=== PATIENT | male | born 1955 | race Caucasian/White ===

== ENCOUNTER 2018-06-02 19:40 | Inpatient (IN) | payer MEDICAID ==
[2018-06-02] MEDS ORDERED: PROPOFOL/EMULSION 1,000 MG/100 ML BOTTLE IV ONE (19:51)
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
[2018-06-02 20:06] LABS: PLATELET COUNT 221 10^3/uL (150-400)
[2018-06-02 20:16] LABS: INR 1.34 (0.83-1.16); PROTIME(PATIENT) 16.8 SEC (12.0-15.0)
[2018-06-02] MEDS ORDERED: IOPAMIDOL (ISOVUE-300) 100 ML BTL ONE (20:26)
[2018-06-02] MEDS ORDERED: MIDAZOLAM 2 MG/2 ML VIAL IVP ONE ×2 (20:37→21:30)
[2018-06-02] MEDS ORDERED: fentaNYL 100 MCG/2 ML INJ IVP ONE (20:38)
[2018-06-02] MEDS ORDERED: LORazepam 2 MG/ML INJ IVP PRN (20:43)
[2018-06-02] MEDS ORDERED: NALOXONE HCL 0.4 MG/ML INJ IVP PRN (20:43)
[2018-06-02] MEDS ORDERED: TDAP ADULT 0.5 ML INJ (BOOSTRIX) IM ONE ×2 (20:55→20:56)
[2018-06-02] MEDS ORDERED: NS 1,000 ML IV SCH (21:00)
[2018-06-02] MEDS ORDERED: fentaNYL/NACL 100 ML IV SCH (21:00)
[2018-06-02] MEDS ORDERED: PROPOFOL/EMULSION 100 ML IV SCH (21:00)
[2018-06-02] MEDS: FAMOTIDINE 20 MG/NACL 50 ML IV SCH (21:09)
--- NOTE | 2018-06-02 21:14 | CPEKG ---
Test Reason : OPEN Blood Pressure : / mmHG Vent. Rate : 111 BPM Atrial Rate : 109 BPM P-R Int : 059 ms QRS Dur : 097 ms QT Int : 346 ms P-R-T Axes : 000 086 -06 degrees QTc Int : 470 ms Sinus tachycardia Right atrial enlargement Borderline right axis deviation Left ventricular hypertrophy Confirmed by Octavio Velasquez ([id number]) on 06/02/2018 9:13:55 PM Referred By: Confirmed By:Octavio Velasquez
[2018-06-02 21:18] LABS: CREATINE KINASE 495 IU/L (0-224)
[2018-06-02] MEDS ORDERED: fentaNYL 100 MCG/2 ML INJ ONE (23:12)
[2018-06-02] MEDS ORDERED: MIDAZOLAM 2 MG/2 ML VIAL ONE (23:13)
[2018-06-03 00:22] LABS: PLATELET COUNT 274 10^3/uL (150-400)
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
[2018-06-03 00:56] LABS: INR 1.59 (0.83-1.16); PROTIME(PATIENT) 19.1 SEC (12.0-15.0)
[2018-06-03] MEDS ORDERED: fentaNYL 100 MCG/2 ML INJ IVP ONE (01:00)
[2018-06-03] MEDS ORDERED: NS 250 ML IV PRN (01:00)
[2018-06-03] MEDS ORDERED: RN MUST ADD K & MAG PROT TO WORKLIST MISC ONE (01:00)
[2018-06-03] MEDS ORDERED: VECURONIUM BROMIDE 50 MG in D5W 50 ML IV SCH (01:00)
[2018-06-03] MEDS ORDERED: niCARdipine/NACL 200 ML IV PRN (01:00)
[2018-06-03] MEDS ORDERED: MIDAZOLAM HCL 50 MG in D5W 50 ML IV PRN (01:00)
[2018-06-03] MEDS ORDERED: NS 1,000 ML IV ONE (01:00)
[2018-06-03] MEDS ORDERED: MIDAZOLAM 2 MG/2 ML VIAL IVP PRN (01:00)
--- NOTE | 2018-06-03 01:00 | GPN ---
PREOP DIAGNOSIS: Outpatient cardiac arrest and coma. POSTOP DIAGNOSIS: Outpatient cardiac arrest and coma. OPERATION: Placement of Thermogard catheter right groin. INDICATIONS: The patient is comatose after outpatient cardiac arrest with CPR. PROCEDURE: The right groin area was scrubbed with ChloraPrep, draped in the usual sterile fashion. An 18-gauge needle was used to locate the femoral vein on the 1st pass medial to the artery. A guide wire inserted. The tract dilated, and eventually the Thermogard catheter inserted. A film taken aft er insertion shows the tip of the catheter below the diaphragm. Ports were flushed with heparinized saline other than the Thermogard ports, which were left alone. T he catheter had been sewn to the patient with silk sutures. A Tegaderm dressing maintain the securit y of the placement. /[id number]/MODL
[2018-06-03] MEDS ORDERED: MEPERIDINE 25 MG/0.5 ML AMP IVP PRN (01:57)
[2018-06-03] MEDS: PROPOFOL/EMULSION 100 ML IV SCH ×5 (02:27→23:59)
[2018-06-03] MEDS ORDERED: POTASSIUM Cl (KCl) 50 ML IV ONE ×2 (02:27→08:17)
[2018-06-03] MEDS: NS 1,000 ML IV SCH ×3 (02:29→20:05)
[2018-06-03 06:32] LABS: INR 1.8 (0.83-1.16)
[2018-06-03] MEDS: fentaNYL/NACL 100 ML IV SCH ×2 (07:17→17:16)
[2018-06-03] MEDS: FAMOTIDINE 20 MG/NACL 50 ML IV SCH ×2 (08:53→20:03)
--- NOTE | 2018-06-03 09:04 | PDMN ---
Medical Necessity Medical necessity: MCG: GRG resp failure: traumatic asphyxiation with cardiac arrest, pt vented, hypothermia after cardiac arrest protocol- thermogard catheter placed, anticipate > 2 MN ongoing med nec care, further monitoring, eval and tx.
[2018-06-03 10:11] LABS: CREATINE KINASE 14400 IU/L (0-224)
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
[2018-06-03 12:31] LABS: PLATELET COUNT 233 10^3/uL (150-400)
[2018-06-03 12:41] LABS: INR 2.04 (0.83-1.16); PROTIME(PATIENT) 23.1 SEC (12.0-15.0)
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
[2018-06-03] MEDS: SODIUM BICARBONATE 150 MEQ in D5W 1,000 ML IV SCH ×2 (15:33→22:39)
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
[2018-06-03] MEDS: RN MUST REMOVE K+ & MG+ PROTOCOL FRM WORKLIST MISC SCH (22:59)
[2018-06-04] MEDS: RN MUST ADD CA+ & PHOS PROTOCOL TO WORKLIST MISC SCH ×2 (01:04→15:58)
[2018-06-04 01:18] LABS: PLATELET COUNT 171 10^3/uL (150-400)
[2018-06-04 01:27] LABS: INR 2.28 (0.83-1.16); PROTIME(PATIENT) 25.1 SEC (12.0-15.0)
[2018-06-04] MEDS: NOREPINEPHRINE BITARTRATE 4 MG in NS 500 ML IV PRN ×3 (03:46→16:27)
[2018-06-04] MEDS: PROPOFOL/EMULSION 100 ML IV SCH ×3 (05:25→21:37)
[2018-06-04] MEDS: fentaNYL/NACL 100 ML IV SCH (05:25)
[2018-06-04] MEDS: SODIUM BICARBONATE 150 MEQ in D5W 1,000 ML IV SCH ×3 (05:35→19:39)
[2018-06-04 06:43] LABS: PLATELET COUNT 158 10^3/uL (150-400)
[2018-06-04 07:38] LABS: CREATINE KINASE 23240 IU/L (0-224)
[2018-06-04] MEDS: NS W/ 20 KCl/L 1,000 ML IV SCH (08:37)
[2018-06-04] MEDS ORDERED: POTASSIUM Cl (KCl) 50 ML IV ONE (08:45)
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
[2018-06-04] MEDS ORDERED: ALBUMIN 5% 250 ML IV ONE (09:30)
[2018-06-04] MEDS: FAMOTIDINE 20 MG/NACL 50 ML IV SCH ×2 (09:33→20:41)
[2018-06-04 13:13] LABS: PLATELET COUNT 121 10^3/uL (150-400)
[2018-06-04 14:39] LABS: INR 3.52 (0.83-1.16)
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
[2018-06-04] MEDS ORDERED: PROTOCOL CALCIUM 1 DOSE IV PRN (15:57)
[2018-06-04] MEDS ORDERED: PROTOCOL K PHOSPHATE 1 DOSE IV PRN (15:57)
[2018-06-04] MEDS: RN MUST REMOVE K+ & MG+ PROTOCOL FRM WORKLIST MISC SCH (15:58)
[2018-06-04 16:00] LABS: INR 3.33 (0.83-1.16); PROTIME(PATIENT) 33.6 SEC (12.0-15.0)
[2018-06-04 16:46] LABS: PLATELET COUNT 117 10^3/uL (150-400)
[2018-06-04] MEDS: ACETAMINOPHEN 650 MG/20.3 ML UDCUP TUBE PRN (18:17)
[2018-06-04] MEDS ORDERED: CALCIUM GLUCONATE 50 ML IV ONE (18:36)
[2018-06-04] MEDS ORDERED: PROTOCOL MAGNESIUM 1 DOSE IV PRN ×2 (19:05→20:51)
[2018-06-04] MEDS ORDERED: PROTOCOL POTASSIUM 1 DOSE MISC PRN ×2 (19:05→20:51)
[2018-06-04] MEDS: POTASSIUM Cl (KCl) 50 ML IV SCH ×3 (19:43→21:15)
[2018-06-05] MEDS ORDERED: POTASSIUM Cl (KCl) 50 ML IV ONE ×3 (02:26→20:35)
[2018-06-05] MEDS: SODIUM BICARBONATE 150 MEQ in D5W 1,000 ML IV SCH ×3 (02:36→17:40)
[2018-06-05] MEDS: NOREPINEPHRINE BITARTRATE 4 MG in NS 500 ML IV PRN ×2 (02:40→06:05)
[2018-06-05] MEDS: PROPOFOL/EMULSION 100 ML IV SCH ×2 (03:05→13:46)
[2018-06-05] MEDS: ACETAMINOPHEN 650 MG/20.3 ML UDCUP TUBE PRN (05:01)
[2018-06-05 06:21] LABS: PLATELET COUNT 88 10^3/uL (150-400)
[2018-06-05 07:11] LABS: CREATINE KINASE 18708 IU/L (0-224)
[2018-06-05] MEDS ORDERED: NOREPINEPHRINE BITARTRATE 16 MG in NS 250 ML IV SCH (08:00)
[2018-06-05] MEDS: VASOPRESSIN 25 UNIT in NS 250 ML IV SCH ×2 (08:15→20:52)
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
[2018-06-05] MEDS ORDERED: CALCIUM GLUCONATE 50 ML IV ONE (09:49)
[2018-06-05] MEDS ORDERED: MAGNESIUM SULF 1 GM/DEXTROSE 100 ML IV ONE ×2 (09:49→10:38)
[2018-06-05] MEDS: NS W/ 20 KCl/L 1,000 ML IV SCH (09:56)
--- NOTE | 2018-06-05 10:15 | ECHO ---
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 Normal global systolic LV function. The ejection fraction is visually estimated to be 60 %. No regional wall motion abnormality. Normal diastolic LV function. Trivial mitral valve regurgitation. Trivial tricuspid valve regurgitation. Measurements: Chambers Valvular Assessment AV/MV Valvular Assessment TV/PV Normal Normal Normal Name Value Range Name Value Range Name Value Range Ao Krista (2D): 2.9 cm (1.4 cm-2.6 AV Vmax: 1.35 m/s (1 m/s-1.7 PV Vmax: 1.25 m/s (0.6 m/s-0.9 cm) m/s) m/s) IVSd (2D): 1.0 cm (0.6 cm-1.1 AV maxP mmHg ( - ) PV PGmax: 6 mmHg ( - ) cm) AV meanP mmHg ( - ) LVDd (2D): 4.0 cm (4.2 cm-5.9 ANDI (VTI): 2.0 cm ( - ) cm) MV E Vmax: 0.58 m/s ( - ) LVDs (2D): 2.4 cm (2.1 cm-4 MV A Vmax: 0.48 m/s ( - ) cm) MV E/A: 1.21 ( - ) LVPWd (2D): 1.0 cm (0.6 cm-1 cm) MV PHT: 0.082 s ( - ) LVOTd 1.9 cm 1.9 cm mm MVA (PHT): 2.7 s ( - ) Visual EF: 60 % RVDd(2D): 2.3 cm (1.9 cm-3.8 cmmm) Continued Measurements: Chambers Valvular Assessment AV/MV Patient: TORIE YOUNG Study Date: 06/05/2018 Page 1 of 2 07:29 AM Name Value Name Value LADs: 2.7 cm MV DecTime: 271 m/s LADs Lon.8 cm MV E' Septal: 0.11 m/s LA Area: 13.8 cm2 MV E/E' Septal: 5.30 LA Volume: 30 ml MV E/E' Lateral: 4.60 LA Volume Index: 16.6 ml/m2 RA Area: 10.8 cm2 Additional Vessels Name Value Inferior Vena Cava: 1.6 cm Findings: Left Ventricle: Normal size left ventricle. No LV hypertrophy. Normal global systolic LV function. The ejection fraction is visually estimated to be 60 %. No regional wall motion abnormality. Normal diastolic LV function. Right Ventricle: Normal size right ventricle. Normal RV function. Left Atrium: The left atrium is normal in size. Right Atrium: The right atrium is normal in size. Mitral Valve: The mitral valve is normal in appearance and function. Trivial mitral valve regurgitation. No mitral stenosis is present. Aortic Valve: The aortic valve is tri-leaflet. There is no aortic valve regurgitation. No aortic valve stenosis is present. Tricuspid Valve: The tricuspid valve is normal in appearance and function. Trivial tricuspid valve regurgitation. Pulmonic Valve: The pulmonic valve is normal in appearance and function. There is no pulmonic regurgitation seen. Aorta: The aorta is normal. Normal size aortic root measuring 2.9 cm. IVC: The IVC is normal sized. Pericardium: No pericardial effusion. No pleural effusion. Exam Comments: Patient supine, on ventilator, very thin. (No Signature Object) Patient: TORIE YOUNG Study Date: 06/05/2018 Page 2 of 2 07:29 AM [id number]
[2018-06-05] MEDS ORDERED: AMIODARONE HCL 150 MG/100 ML BAG (1.5 MG/ML) IV ONE (11:04)
[2018-06-05] MEDS ORDERED: AMIODARONE HCL 100 ML IV ONE ×2 (11:30→11:34)
[2018-06-05] MEDS ORDERED: AMIODARONE HCL 200 ML IV ONE (11:34)
[2018-06-05] MEDS: FAMOTIDINE 20 MG/NACL 50 ML IV SCH ×2 (12:08→20:50)
--- NOTE | 2018-06-05 14:23 | ASMTCMCOM ---
CM Note CM Note Notes: Spoke with patient's mother and sister to invite them to a "Family Meeting". They were not interested at this time, maybe later in the week. Date Signed: 06/05/2018 11:04 AM Electronically Signed By:Ashley Jaimes LCSW
[2018-06-05] MEDS ORDERED: LIDOCAINE 1% 300 MG/30 ML SDV MISC ONE (15:18)
[2018-06-05] MEDS ORDERED: LIDOCAINE 1% 300 MG/30 ML SDV ONE (15:20)
--- NOTE | 2018-06-05 16:50 | SOAPPROG ---
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
[2018-06-05] MEDS ORDERED: AMIODARONE HCL 540 MG in D5W 300 ML IV ONE (17:45)
[2018-06-05] MEDS ORDERED: FUROSEMIDE 20 MG/2 ML VIAL IVP ONE (20:45)
[2018-06-05] MEDS: ERTAPENEM 1 GM in NS 100 ML IV SCH (20:49)
[2018-06-05] MEDS: ENOXAPARIN 60 MG/0.6 ML SYR SC SCH (20:52)
[2018-06-06] MEDS: SODIUM BICARBONATE 150 MEQ in D5W 1,000 ML IV SCH (01:13)
[2018-06-06] MEDS: POTASSIUM Cl (KCl) 50 ML IV SCH ×5 (01:28→16:35)
--- NOTE | 2018-06-06 03:24 | GPN ---
PROCEDURE: Bronchoscopy. REASON FOR BRONCHOSCOPY: Atelectasis, right middle lobe pneumonia. ANESTHESIA GIVEN: Patient is currently sedated and on mechanical ventilation. He received 1% lidoca ine topically. DESCRIPTION OF PROCEDURE: Procedure was performed in the intensive care unit under continuous pulse ox, EKG and blood pressure monitoring. Please note, the patient is on mechanical ventilation which i s by definition a closed system and posed no risk to airborne pathogens. Bronchoscope was entered through a #7.5 endotracheal tube. Distal trachea and katerin were visualized , showed no endobronchial lesions and normal-appearing mucosa. Bronchoscope inserted in the left jj g. Left upper lobe, lingula and left lower lobe including subsegments were visualized, showed no end obronchial lesions and normal-appearing mucosa. Bronchoscope inserted in the right lung. Right uppe r lobe was visualized, showed no endobronchial lesions, normal-appearing mucosa. Right middle lobe a nd then right lower lobes were visualized, showed no endobronchial lesions, normal-appearing mucosa, but moderate amount of thin bloody secretions that were therapeutically aspirated. Bronchoalveolar l avage was taken from the right middle lobe and right lower lobe. This was sent for culture and sensi tivity. The patient tolerated the procedure well. There were no apparent complications. /[id number]/MODL
[2018-06-06] MEDS: ACETAMINOPHEN 650 MG/20.3 ML UDCUP TUBE PRN (03:54)
[2018-06-06 05:21] LABS: PLATELET COUNT 59 10^3/uL (150-400)
[2018-06-06] MEDS ORDERED: CALCIUM GLUCONATE 50 ML IV ONE (05:32)
[2018-06-06 06:06] LABS: CREATINE KINASE 12034 IU/L (0-224)
--- NOTE | 2018-06-06 06:12 | CPEKG ---
Test Reason : OPEN Blood Pressure : / mmHG Vent. Rate : 151 BPM Atrial Rate : 150 BPM P-R Int : 132 ms QRS Dur : 082 ms QT Int : 280 ms P-R-T Axes : -78 072 258 degrees QTc Int : 444 ms atrial fibrillation with RVR Repolarization abnormality, prob rate related Confirmed by Loki Dozier ([id number]) on 06/06/2018 6:12:35 AM Referred By: Confirmed By:Loki Dozier
[2018-06-06] MEDS ORDERED: MAGNESIUM SULF 1 GM/DEXTROSE 100 ML IV ONE (08:40)
[2018-06-06] MEDS ORDERED: POTASSIUM Cl (KCl) 50 ML IV ONE ×2 (08:42→20:47)
[2018-06-06] MEDS: FAMOTIDINE 20 MG/NACL 50 ML IV SCH (09:03)
[2018-06-06] MEDS: CALCIUM GLUCONATE 50 ML IV ONE ×2 (09:03→09:23)
[2018-06-06] MEDS: ENOXAPARIN 60 MG/0.6 ML SYR SC SCH (09:05)
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
[2018-06-06] MEDS ORDERED: AMIODARONE HCL 150 MG/100 ML BAG (1.5 MG/ML) IV ONE (10:28)
[2018-06-06] MEDS ORDERED: AMIODARONE A.FIB-LOAD DOSE(ORDER 1/3) PREMIX IV ONE (11:00)
[2018-06-06] MEDS: AMIODARONE HCL 200 ML IV SCH ×2 (12:20→22:11)
[2018-06-06] MEDS ORDERED: DILTIAZEM 25 MG/5 ML VIAL IVP ONE (12:30)
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
[2018-06-06] MEDS: NS W/ 20 KCl/L 1,000 ML IV SCH ×2 (13:21→15:35)
--- NOTE | 2018-06-06 15:01 | ASMTCMCOM ---
CM Note CM Note Notes: Patient has had numerous admits to [facility]. He is familiar to [facility]. 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 Besides his disability check-$600, it would be hard for him without those 2 checks. It's too exhausting for him to carry an O2 tank being homeless. Unless placement is found for both patient and the person he cares for, he will continue to come to [facility] as needed. Date Signed: 06/06/2018 03:00 PM Electronically Signed By:Ashley Jaimes LCSW
--- NOTE | 2018-06-06 15:07 | ASMTCMCOM ---
CM Note CM Note Notes: Please disregard the CM Note 06/06/18 15:01. Written on the wrong patient. Date Signed: 06/06/2018 03:06 PM Electronically Signed By:Ashley Jaimes LCSW
[2018-06-06] MEDS: METOPROLOL TARTRATE 5 MG/5 ML INJ IVP SCH ×3 (16:23→22:09)
[2018-06-06] MEDS: PANTOPRAZOLE SODIUM 40 MG VIAL IVP SCH (16:27)
[2018-06-06] MEDS ORDERED: METOPROLOL TARTRATE 5 MG/5 ML INJ IVP SCH (18:00)
[2018-06-06] MEDS: ERTAPENEM 1 GM in NS 100 ML IV SCH (20:44)
[2018-06-06] MEDS: PETROLAT,WHT/MIN OIL/SOD CHL 3.5 GM OPHT.OINT EACHEYE PRN (21:48)
[2018-06-06] MEDS: DILTIAZEM HCL/D5W 125 ML IV SCH (23:02)
[2018-06-07] MEDS: POTASSIUM Cl (KCl) 50 ML IV SCH ×12 (02:33→22:14)
[2018-06-07] MEDS: PETROLAT,WHT/MIN OIL/SOD CHL 3.5 GM OPHT.OINT EACHEYE PRN (03:45)
[2018-06-07] MEDS: METOPROLOL TARTRATE 5 MG/5 ML INJ IVP SCH ×3 (05:45→18:02)
[2018-06-07 06:41] LABS: INR 1.63 (0.83-1.16); PROTIME(PATIENT) 19.5 SEC (12.0-15.0)
[2018-06-07 06:43] LABS: PLATELET COUNT 54 10^3/uL (150-400)
[2018-06-07] MEDS ORDERED: CALCIUM GLUCONATE 50 ML IV ONE (07:35)
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
--- NOTE | 2018-06-07 08:31 | TRAUMAPN ---
Trauma Progress Note - Problem/Surgery Performed (1) Traumatic asphyxiation Assessment/Plan: profound neuro defecit with some reflex function returning/neurology consult this morning with Dr. Lundy Qualifiers: Encounter type: initial encounter Qualified Code(s): T71.9XXA - Asphyxiation due to unspecified cause, initial encounter (4) Diarrhea Assessment/Plan: started several days ago and slowing down some/rectal tube in place Qualifiers: Diarrhea type: unspecified type Qualified Code(s): R19.7 - Diarrhea, unspecified (5) Thrombocytopenia Assessment/Plan: likely due to hypothermia/will hold LMWH and monitor (6) Anemia Assessment/Plan: likely secondary to hypothermia, will monitor and hold LMWH Qualifiers: Bone marrow failure anemia type: pancytopenia, other Assessment/Plan: s/p traumatic asphyxia with persistant, but resolving, severe neurologic defecit s/p HACA protocol anemia/thrombocytopenia ventilatory failure nutritional defecit Plan: Subjective: intubated day #5, sedation off Objective: Vital Signs Temp Pulse Resp BP Pulse Ox 37.2 C 84 18 142/75 H 95 06/07/18 07:00 06/07/18 07:00 06/07/18 07:00 06/07/18 07:00 06/07/18 07:00 Microbiology 06/05/18 Unknown Gram Stain - Final Bronchial Alveolar Lavage - Bilateral Lobes Laboratory Results 06/07/18 06:00 06/07/18 06:00 06/06/18 06/07/18 06/08/18 05:59 05:59 05:59 Intake Total 5740.6 1970 Output Total 3330 2250 Balance 2410.6 -280 PT 19.5 SEC (12.0-15.0) H 06/07/18 06:00 INR 1.63 (0.83-1.16) H 06/07/18 06:00 - C-Spine Clearance Cervical Spine Cleared: No Physical Exam - Physical Exam General Appearance: other (intubated, spontaneous cough, responds to ETT suctioning) EENT: other (P 3RRL) Neck: other (C collar in place) Respiratory: decreased breath sounds, rhonchi Cardiac/Chest: regular rate, rhythm Abdomen: soft, distended, other (Thermaguard catheter right groin) Male Genitalia: other (Liriano cath) Rectal: deferred, other (rectal tube) Skin: warm/dry Neuro/Psych: motor weakness, sensory deficit, cognition abnormalities (GCS 1-2-1 ), other
[2018-06-07] MEDS: AMIODARONE HCL 200 ML IV SCH ×2 (08:48→19:48)
[2018-06-07] MEDS: PANTOPRAZOLE SODIUM 40 MG VIAL IVP SCH (08:55)
[2018-06-07] MEDS: ACETAMINOPHEN 650 MG/20.3 ML UDCUP TUBE PRN ×3 (09:30→19:58)
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
[2018-06-07] MEDS ORDERED: ALTEPLASE 2 MG VIAL IVP PRN (10:51)
--- NOTE | 2018-06-07 11:49 | ASMTCMCOM ---
CM Note CM Note Notes: Met with patient's mother, Cindy and sister, Vandana (Ashley) regarding proxy for the patient. Cindy states she is not strong enough to be the proxy right now and supports Ashley serving in that capacity. Ashley's phone number is [phone]. Ashley lives in [place] and is available 24-7 for any issues that may come up with her brother's care. Ashley was given copies of the proxy appointment and the proxy responsibilities paperwork. Cindy and Ashley talked with Dr. Walker and currently they would like to give the patient until Tuesday morning to see if he improves at all. In rounds today, the nurse stated patient opened his eyes and looked around. Otherwise there has not been any significant neurological change. Reviewed family meetings with family members and they will let us know when they need one. So far, Cindy and Ashley feel the nursing staff is doing an excellent job of keeping them informed. CM will follow. Date Signed: 06/07/2018 11:49 AM Electronically Signed By:Eun Leon LCSW
[2018-06-07] MEDS: DILTIAZEM HCL/D5W 125 ML IV SCH (16:29)
[2018-06-07] MEDS: ERTAPENEM 1 GM in NS 100 ML IV SCH (19:58)
[2018-06-07] MEDS: NS W/ 20 KCl/L 1,000 ML IV SCH (21:20)
[2018-06-08] MEDS: METOPROLOL TARTRATE 5 MG/5 ML INJ IVP SCH ×4 (00:22→17:52)
[2018-06-08] MEDS: POTASSIUM Cl (KCl) 50 ML IV SCH ×6 (01:27→21:18)
[2018-06-08] MEDS: PETROLAT,WHT/MIN OIL/SOD CHL 3.5 GM OPHT.OINT EACHEYE PRN (02:52)
[2018-06-08] MEDS: ACETAMINOPHEN 650 MG/20.3 ML UDCUP TUBE PRN (03:07)
[2018-06-08] MEDS: AMIODARONE HCL 200 ML IV SCH ×2 (05:26→15:59)
[2018-06-08 05:41] LABS: PLATELET COUNT 52 10^3/uL (150-400)
[2018-06-08] MEDS ORDERED: CALCIUM GLUCONATE 50 ML IV ONE (08:21)
--- NOTE | 2018-06-08 08:21 | NEUROPROG ---
Assessment: Total unit time of 25 min. I had a detailed discussion with the patient's sister. His prognosis is currently uncertain but still remains poor given the lack of major improvements since his arrest. However, I am still in favor of watching for the next several days to see if we see any signs of slow improvement that would suggest a good quality of life outcome. His sister has a good perspective and fully understands the challenges we face in trying to predict what will happen in the future but does say the patient would have historically strongly desired autonomy. Subjective: The patient has had no major changes in the last 24 hr since I examined him. I met his sister this morning who will be the decision maker in all likelihood for ongoing care issues. There have been no changes in relative responsiveness. He has not been following commands in any reliable fashion at this point. Objective: Vital Signs Temp Pulse Resp BP Pulse Ox 37.3 C 76 31 H 142/83 H 95 06/08/18 06:00 06/08/18 07:00 06/08/18 07:00 06/08/18 07:00 06/08/18 07:00 Microbiology 06/05/18 Unknown Gram Stain - Final Bronchial Alveolar Lavage - Bilateral Lobes Bronchial Culture - Final Klebsiella Oxytoca/Raoutella Laboratory Results 06/08/18 05:25 06/08/18 05:25 06/07/18 06/08/18 06/09/18 05:59 05:59 05:59 Intake Total 1970 3365 Output Total 2250 1825 Balance -280 1540 PT 19.5 SEC (12.0-15.0) H 06/07/18 06:00 INR 1.63 (0.83-1.16) H 06/07/18 06:00 He is on the ventilator currently and occasionally coughs or has some spontaneous grimacing or furrowing of the brow but not consistently to my direct painful stimuli. There are conjugate, slow roving eye movements without attention. He isn't following commands. He is not withdrawing to pain. Allergies/Adverse Reactions: No Known Allergies Allergy (Unverified 06/02/18 21:00)
[2018-06-08] MEDS: PANTOPRAZOLE SODIUM 40 MG VIAL IVP SCH (08:37)
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
[2018-06-08] MEDS ORDERED: CALCIUM GLUCONATE 1 GM in D5W 50 ML IV ONE (09:00)
--- NOTE | 2018-06-08 09:47 | TRAUMAPN ---
Trauma Progress Note Assessment/Plan: 63 yo s.p crush injury with 1st rib fracture and cardiac arrest s/p HACA Slow return of recovery. Today opened eyes wide open when I palpated his abdomen although did not focus. I agree that it is reasonable to follow for a few more days before making decisions Guarded prognosis Discussed with sister Appreciate Photogrammetry Airplane Pilot Objective: Vital Signs Temp Pulse Resp BP Pulse Ox 37.2 C 67 24 H 140/79 H 96 06/08/18 08:30 06/08/18 09:00 06/08/18 09:00 06/08/18 09:00 06/08/18 09:00 Microbiology 06/05/18 Unknown Gram Stain - Final Bronchial Alveolar Lavage - Bilateral Lobes Bronchial Culture - Final Klebsiella Oxytoca/Raoutella Laboratory Results 06/08/18 05:25 06/08/18 05:25 06/07/18 06/08/18 06/09/18 05:59 05:59 05:59 Intake Total 1970 3365 Output Total 2250 1825 Balance -280 1540 PT 19.5 SEC (12.0-15.0) H 06/07/18 06:00 INR 1.63 (0.83-1.16) H 06/07/18 06:00 - C-Spine Clearance Cervical Spine Cleared: No Physical Exam - Physical Exam General Appearance: WD/WN, no apparent distress, unresponsive EENT: scleral icterus (R), scleral icterus (L) Neck: other (c collar in place) Respiratory: lungs clear, normal breath sounds Cardiac/Chest: regular rate, rhythm Abdomen: soft, other (much softer, some bowel sounds, grimaces with palpation) Neuro/Psych: other (does not follow commands)
[2018-06-08] MEDS ORDERED: POTASSIUM Cl (KCl) 50 ML IV ONE (10:26)
[2018-06-08] MEDS: ERTAPENEM 1 GM in NS 100 ML IV SCH (20:39)
[2018-06-09] MEDS: NS W/ 20 KCl/L 1,000 ML IV SCH (01:11)
[2018-06-09] MEDS: METOPROLOL TARTRATE 5 MG/5 ML INJ IVP SCH ×5 (01:14→23:56)
[2018-06-09] MEDS: POTASSIUM Cl (KCl) 50 ML IV SCH ×7 (01:14→23:56)
[2018-06-09] MEDS: DILTIAZEM HCL/D5W 125 ML IV SCH ×3 (01:15→22:25)
[2018-06-09 06:33] LABS: PLATELET COUNT 50 10^3/uL (150-400)
[2018-06-09] MEDS: PANTOPRAZOLE SODIUM 40 MG VIAL IVP SCH (08:07)
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
--- NOTE | 2018-06-09 08:42 | NEUROPROG ---
Assessment: Total unit time of 25 min. I had a detailed discussion with the patient's sister. His prognosis is currently uncertain but still remains poor given the lack of major improvements since his arrest. However, I am still in favor of watching for the next several days to see if we see any signs of slow improvement that would suggest a good quality of life outcome. His sister has a good perspective and fully understands the challenges we face in trying to predict what will happen in the future but does say the patient would have historically strongly desired autonomy. 06/09/18: There is significant improvement today. Total unit time of 15 min. There may be residual encephalopathy, but these are very good signs so we will watch for ongoing, improvements and see more about neurologic status once he is able to be extubated. Subjective: The patient has started to respond with sustained eye opening and is starting to follow commands over the last 12 hr. Objective: Vital Signs Temp Pulse Resp BP Pulse Ox 37.7 C 70 28 H 142/77 H 94 06/09/18 08:00 06/09/18 08:00 06/09/18 08:00 06/09/18 08:00 06/09/18 08:00 Laboratory Results 06/09/18 06:20 06/09/18 06:20 06/08/18 06/09/18 06/10/18 05:59 05:59 05:59 Intake Total 3365 2523 Output Total 1825 2450 Balance 1540 73 PT 19.5 SEC (12.0-15.0) H 06/07/18 06:00 INR 1.63 (0.83-1.16) H 06/07/18 06:00 Currently he is awake with eyes opened and periodically looks around the room and seems to attend to individuals at various times and is following some simple commands such as moving his feet and closing his eyes. Although I could not get him to move the arms, earlier there was a reaction to manipulation the left axillary region by reaching over the right arm according to the nurse. Allergies/Adverse Reactions: No Known Allergies Allergy (Unverified 06/02/18 21:00)
--- NOTE | 2018-06-09 10:23 | TRAUMAPN ---
Trauma Progress Note Assessment/Plan: 63yo M s/p crush injury c subsequent cardiac arrest, now on HACA, rewarming Neuro: following commands, tracking with eyes. Winces with pain Pulm: weaning on vent, wean to extubate CV: HDS, off pressors, rate controlled on dilt Abdomen: soft, ND. FMS in place, loose stools. Not bloody Renal: page, UOP appropriate Heme: Hb stable, on LMWH, will trend. Had elevated CK from crush injury Id: afebrile Ortho: L hand images today, per my review nothing acute, will check against final read Dispo: significant progress made neurologically today. Wean vent. Trickle feeds , remove FMS. This is great news Subjective: following commands Objective: Vital Signs Temp Pulse Resp BP Pulse Ox 38 C 71 29 H 149/71 H 93 06/09/18 09:00 06/09/18 09:00 06/09/18 09:00 06/09/18 09:00 06/09/18 09:00 Laboratory Results 06/09/18 06:20 06/09/18 06:20 06/08/18 06/09/18 06/10/18 05:59 05:59 05:59 Intake Total 3365 2523 Output Total 1825 2450 Balance 1540 73 PT 19.5 SEC (12.0-15.0) H 06/07/18 06:00 INR 1.63 (0.83-1.16) H 06/07/18 06:00 - C-Spine Clearance Cervical Spine Cleared: No
[2018-06-09] MEDS: D5W 1,000 ML IV SCH ×2 (13:19→23:56)
[2018-06-09] MEDS ORDERED: POTASSIUM Cl (KCl) 50 ML IV SCH (13:45)
[2018-06-09] MEDS ORDERED: POTASSIUM Cl (KCl) 50 ML IV ONE ×2 (14:00)
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
--- NOTE | 2018-06-09 16:04 | ASMTCMCOM ---
CM Note CM Note Notes: Spoke with patient's sister regarding Medicaid application. Caroline has contacted her and she is in the process of seeing if she can obtain any check stubs or financial information from patient's place of work. 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 Ashley is pursuing guardianship for her brother so she can manage his financial affairs until he is able again. Patient's nurse states he is following activity with his eyes and had some response to pain. Patient's neuro status slightly improved. D/C plan remains TBD. Spoke with Eula from inpatient rehab who was inquiring about him. She will continue to track his progress. CM will follow. Date Signed: 06/09/2018 04:03 PM Electronically Signed By:Eun Leon LCSW
[2018-06-09] MEDS: ERTAPENEM 1 GM in NS 100 ML IV SCH (22:25)
[2018-06-10] MEDS: POTASSIUM Cl (KCl) 50 ML IV SCH (00:54)
[2018-06-10] MEDS ORDERED: POTASSIUM Cl (KCl) 50 ML IV ONE ×3 (02:33→21:32)
[2018-06-10] MEDS: METOPROLOL TARTRATE 5 MG/5 ML INJ IVP SCH ×3 (05:21→17:51)
[2018-06-10 05:45] LABS: INR 1.36 (0.83-1.16); PROTIME(PATIENT) 16.9 SEC (12.0-15.0)
[2018-06-10 05:52] LABS: PLATELET COUNT 103 10^3/uL (150-400)
--- NOTE | 2018-06-10 08:13 | NEUROPROG ---
Assessment: Total unit time of 25 min. I had a detailed discussion with the patient's sister. His prognosis is currently uncertain but still remains poor given the lack of major improvements since his arrest. However, I am still in favor of watching for the next several days to see if we see any signs of slow improvement that would suggest a good quality of life outcome. His sister has a good perspective and fully understands the challenges we face in trying to predict what will happen in the future but does say the patient would have historically strongly desired autonomy. 06/09/18: There is significant improvement today. Total unit time of 15 min. There may be residual encephalopathy, but these are very good signs so we will watch for ongoing, improvements and see more about neurologic status once he is able to be extubated. 06/10/18: Total unit time of 15 min. The patient is making a good recovery neurologically with returning cognitive and physical function although everything is still understandably very slow. He will probably start rehab therapies this weekend and move toward more long-term recovery in the next week. Subjective: Patel says that he does not have pain. However, he is slow to respond right now. The nurse says said he has noticed pain in his left shoulder at times. He is extubated now and consistently following commands. Objective: Vital Signs Temp Pulse Resp BP Pulse Ox 36.9 C 72 38 H 153/86 H 94 06/10/18 05:39 06/10/18 07:00 06/10/18 07:00 06/10/18 07:00 06/10/18 07:00 Laboratory Results 06/10/18 04:25 06/10/18 04:25 06/09/18 06/10/18 06/11/18 05:59 05:59 05:59 Intake Total 2523 2287 Output Total 2450 2850 Balance 73 -563 PT 16.9 SEC (12.0-15.0) H 06/10/18 04:25 INR 1.36 (0.83-1.16) H 06/10/18 04:25 His eyes are opening and he is able to attend to his environment and tracked me and move all of his extremities though quite weak in general. Most of the movements are in the 2 or 3/5 range and a little weaker in the left arm perhaps related to some pain. Allergies/Adverse Reactions: No Known Allergies Allergy (Unverified 06/02/18 21:00)
--- NOTE | 2018-06-10 08:52 | TRAUMAPN ---
Trauma Progress Note Assessment/Plan: 63yo M s/p crush injury c subsequent cardiac arrest, prior HACA/rewarming no overnight issues. waking up significantly more than yesterday. AVSS alert, following commands, poor extremity movement - effort appears to be increasing. heart reg lungs clear abd dist, soft ext with diffuse edema rt arm PICC clean Neuro: following commands, tracking with eyes, verbalizing today Pulm: tolerating RA well CV: HDS, off pressors, rate controlled on dilt GI: tolerating TF - no issues Renal: page, UOP appropriate Heme: Hb stable, on LMWH, will trend. Had elevated CK from crush injury - resolved Id: afebrile Dispo: LTAC planning - tx SDU care plan reviewed with ICU MD and sister/son at bedside. Objective: Vital Signs Temp Pulse Resp BP Pulse Ox 36.9 C 72 38 H 153/86 H 94 06/10/18 05:39 06/10/18 07:00 06/10/18 07:00 06/10/18 07:00 06/10/18 07:00 Laboratory Results 06/10/18 04:25 06/10/18 04:25 06/09/18 06/10/18 06/11/18 05:59 05:59 05:59 Intake Total 2523 2287 Output Total 2450 2850 Balance 73 -563 PT 16.9 SEC (12.0-15.0) H 06/10/18 04:25 INR 1.36 (0.83-1.16) H 06/10/18 04:25 - C-Spine Clearance Cervical Spine Cleared: No
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
[2018-06-10] MEDS: PANTOPRAZOLE SODIUM 40 MG VIAL IVP SCH (09:17)
[2018-06-10] MEDS: D5W 1,000 ML IV SCH (15:05)
--- NOTE | 2018-06-10 16:59 | HOSPPROG ---
Hospitalist Progress Note Assessment/Plan: * s/p cardiac arrest due to crush injury -ECHO okay * Metabolic encephalopathy - suspect due to anoxia -s/p HACA -improving daily * Afib -suspect due to stress - now NSR -IV metoprolol while NPO * Acute respiratory failure -s/p extubation * 1st rib fracture -rib fracture protocol * Aspiration PNA -IV invanz * Rhabdo due to crush injury -CPK improving * Increased LFT -likely due to shock * Hypernatremia -on D5W - needs free H2O down NGT if fails swallow * ARF -resolved Subjective: Waking up, much better day to day Objective: Vital Signs Temp Pulse Resp BP Pulse Ox 36.6 C 77 37 H 151/85 H 95 06/10/18 15:45 06/10/18 15:45 06/10/18 15:45 06/10/18 15:45 06/10/18 15:45 Laboratory Results 06/10/18 04:25 06/10/18 11:30 06/09/18 06/10/18 06/11/18 05:59 05:59 05:59 Intake Total 2523 2287 970 Output Total 2450 2850 900 Balance 73 -563 70 PT 16.9 SEC (12.0-15.0) H 06/10/18 04:25 INR 1.36 (0.83-1.16) H 06/10/18 04:25 d/w Dr. Walker and Yanci regarding treatment plan CXR viewed, my personal interpretation is - + infiltrate + effusion - Physical Exam Constitutional: uncomfortable, unkempt Eyes: PERRL Cardiovascular: regular rate and rhythym, No JVD, No edema Respiratory: respiratory distress (breathing fast and shallow), No reduced air movement, No expiratory wheeze, No inspiratory crackles, No rhonchi Gastrointestinal: normoactive bowel sounds, soft, non-tender abdomen, no palpable masses Skin: no rashes or abrasions, no fluctuance, no induration Neurologic: No AAOx3 Psychiatric: interacting appropriately (much better, said a few words that were appropriate), encephalopathic, anxious, poor insight, No thought process linear , No agitated ICD10 Worksheet Patient Problems: Problems Problem Status Onset Cardiac arrest due to trauma Acute Traumatic asphyxiation Acute Ventilatory failure Acute Diarrhea Acute Thrombocytopenia Acute Anemia Acute
--- NOTE | 2018-06-10 18:12 | TRAUMAPNT ---
Trauma Tertiary Progress Note Assessment/Plan: 63yo M s/p crush injury c subsequent cardiac arrest, prior HACA/rewarming no overnight issues. waking up significantly more than yesterday. AVSS alert, following commands, poor extremity movement - effort appears to be increasing. heart reg lungs clear abd dist, soft ext with diffuse edema rt arm PICC clean Neuro: following commands, tracking with eyes, verbalizing today Pulm: tolerating RA well CV: HDS, off pressors, rate controlled on dilt GI: tolerating TF - no issues Renal: page, UOP appropriate Heme: Hb stable, on LMWH, will trend. Had elevated CK from crush injury - resolved Id: afebrile Dispo: LTAC planning - tx SDU care plan reviewed with ICU MD and sister/son at bedside. Objective: Vital Signs Temp Pulse Resp BP Pulse Ox 36.6 C 81 37 H 156/89 H 95 06/10/18 15:45 06/10/18 17:51 06/10/18 15:45 06/10/18 17:51 06/10/18 15:45 Laboratory Results 06/10/18 04:25 06/10/18 17:20 06/09/18 06/10/18 06/11/18 05:59 05:59 05:59 Intake Total 2523 2287 1259 Output Total 2450 2850 1200 Balance 73 -563 59 PT 16.9 SEC (12.0-15.0) H 06/10/18 04:25 INR 1.36 (0.83-1.16) H 06/10/18 04:25 - C-Spine Clearance Cervical Spine Cleared: No
[2018-06-10] MEDS: hydrALAZINE 20 MG/ML VIAL IVP PRN (21:48)
[2018-06-10] MEDS: ERTAPENEM 1 GM in NS 100 ML IV SCH (21:52)
[2018-06-10] MEDS: ENALAPRILAT DIHYDRATE 1.25 MG/ML VIAL IVP PRN (23:05)
[2018-06-11] MEDS: METOPROLOL TARTRATE 5 MG/5 ML INJ IVP SCH ×3 (00:13→12:57)
[2018-06-11] MEDS: KETOROLAC 30 MG/1 ML SDV IVP PRN (00:14)
[2018-06-11 06:05] LABS: PLATELET COUNT 159 10^3/uL (150-400)
[2018-06-11 06:11] LABS: INR 1.34 (0.83-1.16); PROTIME(PATIENT) 16.8 SEC (12.0-15.0)
[2018-06-11 06:17] LABS: CREATINE KINASE 177 IU/L (0-224)
[2018-06-11] MEDS: hydrALAZINE 20 MG/ML VIAL IVP PRN ×2 (07:48→19:55)
[2018-06-11] MEDS: ENOXAPARIN 40 MG/0.4 ML SYR SC SCH (08:41)
[2018-06-11] MEDS: PANTOPRAZOLE SODIUM 40 MG VIAL IVP SCH (08:41)
--- NOTE | 2018-06-11 09:01 | NEUROPROG ---
Assessment: Total unit time of 25 min. I had a detailed discussion with the patient's sister. His prognosis is currently uncertain but still remains poor given the lack of major improvements since his arrest. However, I am still in favor of watching for the next several days to see if we see any signs of slow improvement that would suggest a good quality of life outcome. His sister has a good perspective and fully understands the challenges we face in trying to predict what will happen in the future but does say the patient would have historically strongly desired autonomy. 06/09/18: There is significant improvement today. Total unit time of 15 min. There may be residual encephalopathy, but these are very good signs so we will watch for ongoing, improvements and see more about neurologic status once he is able to be extubated. 06/10/18: Total unit time of 15 min. The patient is making a good recovery neurologically with returning cognitive and physical function although everything is still understandably very slow. He will probably start rehab therapies this weekend and move toward more long-term recovery in the next week. 06/11/18: Patient is stable and slowly improving. I will sign off the case, but neurology is available for any questions that may arise in the future. Tomorrow, Dr. Limon will be construction technician. Objective: Vital Signs Temp Pulse Resp BP Pulse Ox 36.8 C 82 37 H 170/97 H 96 06/11/18 07:53 06/11/18 07:53 06/11/18 07:53 06/11/18 07:53 06/11/18 07:53 Laboratory Results 06/11/18 05:40 06/11/18 05:40 06/10/18 06/11/18 06/12/18 05:59 05:59 05:59 Intake Total 2287 2509 Output Total 2850 2200 Balance -563 309 PT 16.8 SEC (12.0-15.0) H 06/11/18 05:40 INR 1.34 (0.83-1.16) H 06/11/18 05:40 Allergies/Adverse Reactions: No Known Allergies Allergy (Unverified 06/02/18 21:00)
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
[2018-06-11] MEDS ORDERED: POTASSIUM Cl (KCl) 50 ML IV ONE ×2 (09:40→19:41)
--- NOTE | 2018-06-11 09:44 | SOAPPROG ---
SOAP Progress Note Assessment/Plan: Assessment: SEEN WITH MY PA TARAS MCDONNELL THIS A.M./PLEASE REFER TO HER NOTE PATIENT IS STABLE WITH NO NEW RECOVERY OF NEUROLOGIC FUNCTION/TOLERATING VENTILATOR Plan: CONTINUE SUPPORTIVE CARE 06/05/18 16:49 06/11/18 09:41 STATUS POST CRUSH INJURY WITH CARDIAC ARREST AND RESUSCITATION NOW WITH DRAMATIC RECOVERY IS ALERT, RESPONSIVE, REASONABLY ORIENTED TODAY IS STILL VERY WEAK CHEST X-RAY REVEALS BILATERAL MILD EFFUSIONS NO OBVIOUS RIB FRACTURES/LABS ARE STABLE BP RUNNING HIGH HEENT SOME ABRASIONS BUT PERRLA, NONICTERIC CHEST CLEAR AND SYMMETRIC AND NONTENDER COR REGULAR RHYTHM WITH ELEVATED BLOOD PRESSURE ABDOMEN SOFT NONTENDER WITHOUT ORGANOMEGALY EXTREMITIES FULL RANGE OF MOTION FULL PULSES BUT STRENGTH IS WEAK NEURO MORE ALERT AND ORIENTED, CRANIAL NERVES INTACT, 4+ MOTOR STRENGTH IMPRESSION DRAMATIC IMPROVEMENT/PLAN CONTINUE SUPPORTIVE CARE Objective: Vital Signs Temp Pulse Resp BP Pulse Ox 36.8 C 82 37 H 170/97 H 96 06/11/18 07:53 06/11/18 07:53 06/11/18 07:53 06/11/18 07:53 06/11/18 07:53 Laboratory Results 06/11/18 05:40 06/11/18 05:40 06/10/18 06/11/18 06/12/18 05:59 05:59 05:59 Intake Total 2287 2509 Output Total 2850 2200 Balance -563 309 PT 16.8 SEC (12.0-15.0) H 06/11/18 05:40 INR 1.34 (0.83-1.16) H 06/11/18 05:40 ICD10 Worksheet Patient Problems: Problems Problem Status Onset Anemia Acute Cardiac arrest due to trauma Acute Diarrhea Acute Thrombocytopenia Acute Traumatic asphyxiation Acute Ventilatory failure Acute
[2018-06-11] MEDS: FUROSEMIDE 20 MG/2 ML VIAL IVP SCH ×2 (15:47→21:40)
[2018-06-11] MEDS ORDERED: PROTOCOL POTASSIUM 1 DOSE MISC PRN (15:56)
--- NOTE | 2018-06-11 16:10 | HOSPPROG ---
Hospitalist Progress Note Assessment/Plan: * s/p cardiac arrest due to crush injury -ECHO okay * Metabolic encephalopathy - suspect due to anoxia -s/p HACA -improving daily * Afib -suspect due to stress - now NSR -IV metoprolol while NPO * Acute respiratory failure -s/p extubation * 1st rib fracture -rib fracture protocol * Aspiration PNA - Klebsiella -IV invanz * Rhabdo due to crush injury -CPK improving * Increased LFT -likely due to shock * Hypernatremia -on D5W -passed swallow, but nectar thick liquids * ARF -resolved * Volume overload -IV lasix * HTN -PO metoprolol, may need to add another agent Subjective: No new complaints, swollen Objective: Vital Signs Temp Pulse Resp BP Pulse Ox 36.6 C 82 39 H 159/87 H 95 06/11/18 12:00 06/11/18 12:57 06/11/18 12:00 06/11/18 12:57 06/11/18 12:00 Laboratory Results 06/11/18 05:40 06/11/18 05:40 06/10/18 06/11/18 06/12/18 05:59 05:59 05:59 Intake Total 2287 2509 Output Total 2850 2200 Balance -563 309 PT 16.8 SEC (12.0-15.0) H 06/11/18 05:40 INR 1.34 (0.83-1.16) H 06/11/18 05:40 d/w DR cheung ICU rounds - stable for PCU today VFSS - passed swallow CXR - possible CHF, effusions abd US - anasarca, ascites, liver ok - Physical Exam Constitutional: chronically ill appearing, uncomfortable, unkempt, cachectic, No no apparent distress Eyes: PERRL Cardiovascular: regular rate and rhythym, no murmur, rub, or gallop Respiratory: inspiratory crackles, respiratory distress (increased respiratory rate), No expiratory wheeze, No rhonchi Gastrointestinal: normoactive bowel sounds, soft, non-tender abdomen, no palpable masses Skin: no rashes or abrasions, no fluctuance, no induration Neurologic: No AAOx3 Psychiatric: encephalopathic, poor insight, poor judgement, poor memory, other ( starting to answer question appropirately but very slow), No interacting appropriately, No thought process linear, No agitated ICD10 Worksheet Patient Problems: Problems Problem Status Onset Cardiac arrest due to trauma Acute Traumatic asphyxiation Acute Ventilatory failure Acute Diarrhea Acute Thrombocytopenia Acute Anemia Acute
[2018-06-11] MEDS: METOPROLOL TARTRATE 25 MG TAB PO SCH (17:25)
[2018-06-11] MEDS: ERTAPENEM 1 GM in NS 100 ML IV SCH (20:11)
[2018-06-12] MEDS: ENALAPRILAT DIHYDRATE 1.25 MG/ML VIAL IVP PRN (00:22)
[2018-06-12] MEDS: D5W 1,000 ML IV SCH ×2 (02:42→12:33)
[2018-06-12] MEDS: FUROSEMIDE 20 MG/2 ML VIAL IVP SCH ×3 (05:29→20:22)
[2018-06-12 05:45] LABS: PLATELET COUNT 226 10^3/uL (150-400)
[2018-06-12] MEDS: ENOXAPARIN 40 MG/0.4 ML SYR SC SCH (08:44)
[2018-06-12] MEDS: hydrALAZINE 20 MG/ML VIAL IVP PRN (08:46)
--- NOTE | 2018-06-12 09:21 | SOAPPROG ---
SOAP Progress Note Assessment/Plan: Assessment/Plan 63yo M s/p crush injury c subsequent cardiac arrest, prior HACA/rewarming no overnight issues. nectar thick liquids approved on swallow. Afebrile. BP 170s/100/s alert, following commands, improved extremity movement, voice appropriately breathy. heart reg lungs clear abd dist, soft, nontender ext with improved edema rt arm PICC clean Neuro: following commands, verbalizing stronger Pulm: tolerating RA well, stable effusions, on Invanz - can likely discontinue later in week CV: HTN - started on po betablocker 2 days ago - will need to adjust as tolerated GI: taking thick liquids - no other issues Renal: page, UOP appropriate - lytes normal Heme: Hb stable, on LMWH. CK from crush injury - resolved Id: afebrile Dispo: LTAC planning 06/12/18 09:18 Objective: Vital Signs Temp Pulse Resp BP Pulse Ox 37.3 C 98 38 H 173/105 H 95 06/12/18 07:56 06/12/18 07:56 06/12/18 07:56 06/12/18 07:56 06/12/18 07:56 Laboratory Results 06/12/18 05:20 06/12/18 05:20 06/11/18 06/12/18 06/13/18 05:59 05:59 05:59 Intake Total 2509 2633 Output Total 2200 3800 Balance 309 -1167 PT 16.8 SEC (12.0-15.0) H 06/11/18 05:40 INR 1.34 (0.83-1.16) H 06/11/18 05:40 ICD10 Worksheet Patient Problems: Problems Problem Status Onset Anemia Acute Cardiac arrest due to trauma Acute Diarrhea Acute Thrombocytopenia Acute Traumatic asphyxiation Acute Ventilatory failure Acute
[2018-06-12] MEDS: METOPROLOL TARTRATE 25 MG TAB PO SCH ×2 (10:47→20:22)
--- NOTE | 2018-06-12 10:52 | HOSPPROG ---
Hospitalist Progress Note Assessment/Plan: Assessment/Plan: * s/p cardiac arrest due to crush injury -ECHO okay * Metabolic encephalopathy - suspect due to anoxia -s/p HACA -improving daily * Afib - suspect due to stress, now NSR -cont BB * Acute respiratory failure - s/p extubation. 4LPM today. He is tachypneic, ABG shows respiratory alkalosis, CXR pers reviewed/interp - persistent effusions , no significant change from yesterday -cont diuresis * 1st rib fracture -rib fracture protocol * Aspiration PNA - Klebsiella -IV invanz -speech following, dysphagia 1 diet * Rhabdo due to crush injury -CPK improving * Increased LFT -likely due to shock, improving * Hypernatremia -D5W d/c'd, follow with Lasix * ARF -resolved * Volume overload -cont IV lasix * HTN -increase metoprolol, prn enalaprilat, hydral * FEN - starting tube feeds today * DVT PPLX - Lovenox * Full code Subjective: Pt able to state "I need to get going". He asks for street clothes. He wants to go to his mom's house. Denies pain. He is rather tachypneic. Denies CP, cough or fever. Objective: Vital Signs Temp Pulse Resp BP Pulse Ox 37.3 C 98 38 H 173/105 H 95 06/12/18 07:56 06/12/18 07:56 06/12/18 07:56 06/12/18 07:56 06/12/18 07:56 Laboratory Results 06/12/18 05:20 06/12/18 05:20 06/11/18 06/12/18 06/13/18 05:59 05:59 05:59 Intake Total 2509 2633 Output Total 2200 3800 Balance 309 -1167 PT 16.8 SEC (12.0-15.0) H 06/11/18 05:40 INR 1.34 (0.83-1.16) H 06/11/18 05:40 - Physical Exam Constitutional: no apparent distress Eyes: PERRL Ears, Nose, Mouth, Throat: moist mucous membranes Cardiovascular: regular rate and rhythym Respiratory: reduced air movement, inspiratory crackles, respiratory distress Gastrointestinal: normoactive bowel sounds, soft, non-tender abdomen Skin: warm Musculoskeletal: generalized weakness Psychiatric: encephalopathic ICD10 Worksheet Patient Problems: Problems Problem Status Onset Anemia Acute Cardiac arrest due to trauma Acute Diarrhea Acute Thrombocytopenia Acute Traumatic asphyxiation Acute Ventilatory failure Acute
[2018-06-12] MEDS: POTASSIUM Cl (KCl) 50 ML IV SCH ×3 (12:14→14:38)
[2018-06-12] MEDS ORDERED: ACETAMINOPHEN 500 MG TAB TUBE ONE (15:43)
[2018-06-12] MEDS ORDERED: POTASSIUM CL 20 MEQ/15 ML UDCUP PO ONE (20:15)
[2018-06-12] MEDS: ACETAMINOPHEN 650 MG/20.3 ML UDCUP TUBE PRN (20:21)
[2018-06-13] MEDS: FUROSEMIDE 20 MG/2 ML VIAL IVP SCH ×3 (05:01→20:35)
[2018-06-13] MEDS ORDERED: POTASSIUM CL 20 MEQ/15 ML UDCUP TUBE ONE ×2 (05:15→19:15)
--- NOTE | 2018-06-13 08:44 | HOSPPROG ---
Hospitalist Progress Note Assessment/Plan: Assessment/Plan: * s/p cardiac arrest due to crush injury -ECHO okay * Metabolic encephalopathy - suspect due to anoxia -s/p HACA -improving daily * Afib - suspect due to stress, now NSR -cont BB * Acute respiratory failure - s/p extubation. 4LPM today. He is less tachypneic, ABG yest showed respiratory alkalosis, CXR yest - persistent effusions, no significant change. Still >10 L net positive -cont diuresis * 1st rib fracture -rib fracture protocol * Aspiration PNA - Klebsiella -s/p 7 days IV invanz -speech following, dysphagia 1 diet * Rhabdo due to crush injury -CPK improving * Increased LFT -likely due to shock, improving * Hypernatremia -free water per NG tube 250 mLs q4h and follow Na * ARF -resolved * Volume overload -cont IV lasix * HTN -increase metoprolol, prn enalaprilat, hydral * FEN - starting tube feeds today * DVT PPLX - Lovenox * Full code Subjective: Pt more awake, able to communicate better. Denies pain. Less SOB. Denies CP. No fevers. Taking some po. Objective: Vital Signs Temp Pulse Resp BP Pulse Ox 36.5 C 97 27 H 119/71 88 L 06/13/18 08:00 06/13/18 08:00 06/13/18 08:00 06/13/18 08:00 06/13/18 08:00 Laboratory Results 06/12/18 05:20 06/13/18 04:00 06/12/18 06/13/18 06/14/18 05:59 05:59 05:59 Intake Total 2633 1490 Output Total 3800 2900 300 Balance -1167 -1410 -300 PT 16.8 SEC (12.0-15.0) H 06/11/18 05:40 INR 1.34 (0.83-1.16) H 06/11/18 05:40 - Physical Exam Constitutional: no apparent distress Eyes: PERRL Ears, Nose, Mouth, Throat: moist mucous membranes Cardiovascular: regular rate and rhythym Respiratory: no respiratory distress, inspiratory crackles Gastrointestinal: normoactive bowel sounds, soft, non-tender abdomen Skin: warm Musculoskeletal: full muscle strength Neurologic: AAOx3 Psychiatric: interacting appropriately ICD10 Worksheet Patient Problems: Problems Problem Status Onset Anemia Acute Cardiac arrest due to trauma Acute Diarrhea Acute Thrombocytopenia Acute Traumatic asphyxiation Acute Ventilatory failure Acute
--- NOTE | 2018-06-13 09:42 | SOAPPROG ---
SOAP Progress Note Assessment/Plan: Assessment: SEEN WITH MY PA TARAS MCDONNELL THIS A.M./PLEASE REFER TO HER NOTE PATIENT IS STABLE WITH NO NEW RECOVERY OF NEUROLOGIC FUNCTION/TOLERATING VENTILATOR Plan: CONTINUE SUPPORTIVE CARE 06/05/18 16:49 06/11/18 09:41 STATUS POST CRUSH INJURY WITH CARDIAC ARREST AND RESUSCITATION NOW WITH DRAMATIC RECOVERY IS ALERT, RESPONSIVE, REASONABLY ORIENTED TODAY IS STILL VERY WEAK CHEST X-RAY REVEALS BILATERAL MILD EFFUSIONS NO OBVIOUS RIB FRACTURES/LABS ARE STABLE BP RUNNING HIGH HEENT SOME ABRASIONS BUT PERRLA, NONICTERIC CHEST CLEAR AND SYMMETRIC AND NONTENDER COR REGULAR RHYTHM WITH ELEVATED BLOOD PRESSURE ABDOMEN SOFT NONTENDER WITHOUT ORGANOMEGALY EXTREMITIES FULL RANGE OF MOTION FULL PULSES BUT STRENGTH IS WEAK NEURO MORE ALERT AND ORIENTED, CRANIAL NERVES INTACT, 4+ MOTOR STRENGTH IMPRESSION DRAMATIC IMPROVEMENT/PLAN CONTINUE SUPPORTIVE CARE 06/13/18 09:41 CONTINUES TO IMPROVE MINIMALLY/MOVES ALL EXTREMITIES VERY WEAK IN HIS UPPER ARMS /TOLERATING TUBE FEEDINGS AFEBRILE/VITAL SIGNS STABLE/URINE OUTPUT GOOD TO REHAB SOON Objective: Vital Signs Temp Pulse Resp BP Pulse Ox 36.5 C 97 27 H 119/71 88 L 06/13/18 08:00 06/13/18 08:00 06/13/18 08:00 06/13/18 08:00 06/13/18 08:00 Laboratory Results 06/12/18 05:20 06/13/18 04:00 06/12/18 06/13/18 06/14/18 05:59 05:59 05:59 Intake Total 2633 1490 Output Total 3800 2900 300 Balance -1167 -1410 -300 PT 16.8 SEC (12.0-15.0) H 06/11/18 05:40 INR 1.34 (0.83-1.16) H 06/11/18 05:40 ICD10 Worksheet Patient Problems: Problems Problem Status Onset Anemia Acute Cardiac arrest due to trauma Acute Diarrhea Acute Thrombocytopenia Acute Traumatic asphyxiation Acute Ventilatory failure Acute
[2018-06-13] MEDS: ENOXAPARIN 40 MG/0.4 ML SYR SC SCH (09:53)
[2018-06-13] MEDS: METOPROLOL TARTRATE 25 MG TAB PO SCH ×2 (09:54→19:45)
[2018-06-13] MEDS: KETOROLAC 30 MG/1 ML SDV IVP PRN (19:45)
[2018-06-14] MEDS: ACETAMINOPHEN 650 MG/20.3 ML UDCUP TUBE PRN (04:06)
[2018-06-14] MEDS: KETOROLAC 30 MG/1 ML SDV IVP PRN (04:06)
[2018-06-14] MEDS ORDERED: POTASSIUM CL 20 MEQ/15 ML UDCUP TUBE ONE ×2 (05:00→22:15)
[2018-06-14] MEDS: FUROSEMIDE 20 MG/2 ML VIAL IVP SCH ×3 (05:12→21:52)
--- NOTE | 2018-06-14 08:45 | TRAUMAPN ---
Trauma Progress Note - Problem/Surgery Performed (1) Traumatic asphyxiation Assessment/Plan: recovering neuologic function/amnestic for event will benefit from inpatient neuro rehab Qualifiers: Encounter type: initial encounter Qualified Code(s): T71.9XXA - Asphyxiation due to unspecified cause, initial encounter (2) Ventilatory failure Assessment/Plan: not an active problem, on RA at risk for aspiration (3) Cardiac arrest due to trauma Assessment/Plan: mechanism of injury leading to anoxic brain injury (4) Diarrhea Assessment/Plan: resolved/rectal tube is out Qualifiers: Diarrhea type: unspecified type Qualified Code(s): R19.7 - Diarrhea, unspecified (5) Thrombocytopenia Assessment/Plan: resolving (6) Anemia Assessment/Plan: resolving Qualifiers: Bone marrow failure anemia type: pancytopenia, other Assessment/Plan: s/p traumatic asphyxia with persistant, but resolving, severe neurologic defecit s/p HACA protocol anemia/thrombocytopenia ventilatory failure nutritional defecit Plan: continue nutritional support/ST/OT/PT CM for placement in neuro-rehab facility Anderson Pete MD, FACS Objective: Vital Signs Temp Pulse Resp BP Pulse Ox 36.7 C 83 34 H 126/73 H 97 06/14/18 08:05 06/14/18 08:05 06/14/18 08:05 06/14/18 08:05 06/14/18 08:05 Laboratory Results 06/12/18 05:20 06/14/18 04:15 06/13/18 06/14/18 06/15/18 05:59 05:59 05:59 Intake Total 1490 1834 Output Total 2900 1950 Balance -1410 -116 PT 16.8 SEC (12.0-15.0) H 06/11/18 05:40 INR 1.34 (0.83-1.16) H 06/11/18 05:40 - C-Spine Clearance Cervical Spine Cleared: No Physical Exam - Physical Exam General Appearance: thin EENT: other (Dobhoff feeding tube) Neck: non-tender Respiratory: lungs clear, decreased breath sounds Cardiac/Chest: regular rate, rhythm Abdomen: normal bowel sounds, non-tender, soft Male Genitalia: other (Liriano cath in place) Rectal: deferred Skin: warm/dry Neuro/Psych: motor weakness (upper extremity > lower extremity, symmetrical with intact DTRs), other (oriented to date, year, location-amnestic for event) Time Spent w/Patient (minutes): 25
[2018-06-14] MEDS: METOPROLOL TARTRATE 25 MG TAB PO SCH ×2 (09:21→21:26)
[2018-06-14] MEDS: ENOXAPARIN 40 MG/0.4 ML SYR SC SCH (09:26)
--- NOTE | 2018-06-14 09:36 | ASMTCMCOM ---
CM Note CM Note Notes: Patient was A & O x 4 and up walking to chair with Therapies. Medicaid Specialist to meet with him today to determine if he is Medicaid appropriate. Left message for In-pt Rehab to see if they accept Medicaid pending. Date Signed: 06/14/2018 09:36 AM Electronically Signed By:Ashley Jaimes LCSW
--- NOTE | 2018-06-14 14:06 | ASMTCMCOM ---
CM Note CM Note Notes: Spoke with mother: patient lives with her in 1 level home. She is 84yrs old and reports having health issues and wouldn't be able to care for him at home. Patient's sister lives in a 2 level home, she and her work. Patient weak but progressing. Working on Medicaid status. Date Signed: 06/14/2018 02:06 PM Electronically Signed By:Ashley Jaimes LCSW
--- NOTE | 2018-06-14 16:28 | HOSPPROG ---
Hospitalist Progress Note Assessment/Plan: Assessment/Plan: * s/p cardiac arrest due to crush injury -ECHO okay * Metabolic encephalopathy - suspect due to anoxia -s/p HACA -improving daily, slow progress * Afib - suspect due to stress, now NSR -cont BB * Acute respiratory failure - s/p extubation. 4LPM today. He is less tachypneic, ABG yest showed respiratory alkalosis, CXR yest - persistent effusions, no significant change. Still >10 L net positive -cont diuresis * 1st rib fracture -rib fracture protocol * Aspiration PNA - Klebsiella -s/p 7 days IV invanz -speech following, dysphagia 1 diet * Rhabdo due to crush injury -CPK improving * Increased LFT -likely due to shock, improving * Hypernatremia -increase free water per NG tube 250 mLs q2h and follow Na * ARF -resolved * Volume overload -cont IV lasix * HTN -increased metoprolol, prn enalaprilat, hydral * FEN - tube feeds * DVT PPLX - Lovenox * Full code * Dispo - cont inpt, transfer to PCU Subjective: Pt up in chair, more conversive, using voice better. Denies pain. Takes some sips of liquids, but on tube feeds for nutrition. Objective: Vital Signs Temp Pulse Resp BP Pulse Ox 36.7 C 78 18 120/68 92 06/14/18 14:26 06/14/18 14:26 06/14/18 14:26 06/14/18 14:26 06/14/18 14:26 Laboratory Results 06/12/18 05:20 06/14/18 04:15 06/13/18 06/14/18 06/15/18 05:59 05:59 05:59 Intake Total 1490 1834 1265 Output Total 2900 1950 650 Balance -1410 -116 615 PT 16.8 SEC (12.0-15.0) H 06/11/18 05:40 INR 1.34 (0.83-1.16) H 06/11/18 05:40 - Physical Exam Constitutional: no apparent distress Eyes: PERRL Ears, Nose, Mouth, Throat: moist mucous membranes Cardiovascular: regular rate and rhythym Respiratory: no respiratory distress Gastrointestinal: normoactive bowel sounds, soft, non-tender abdomen Skin: warm Musculoskeletal: full muscle strength Neurologic: AAOx3 Psychiatric: interacting appropriately ICD10 Worksheet Patient Problems: Problems Problem Status Onset Anemia Acute Cardiac arrest due to trauma Acute Diarrhea Acute Thrombocytopenia Acute Traumatic asphyxiation Acute Ventilatory failure Acute
[2018-06-15] MEDS: FUROSEMIDE 20 MG/2 ML VIAL IVP SCH ×3 (05:23→22:41)
[2018-06-15] MEDS ORDERED: POTASSIUM CL 10 MEQ TAB PO ONE (08:18)
--- NOTE | 2018-06-15 08:40 | TRAUMAPN ---
Trauma Progress Note Assessment/Plan: 63yo M s/p crush injury c subsequent cardiac arrest, now on HACA, rewarming has made a lot of progress from neuro standpoint. Really remarkable nothing more to add from a trauma standpoint. He needs to work with PT/OT and see what we can do from a placement standpoint. Subjective: weak but pain is controlled. Objective: Vital Signs Temp Pulse Resp BP Pulse Ox 36.6 C 76 20 120/70 98 06/15/18 03:02 06/15/18 03:02 06/15/18 03:02 06/15/18 03:02 06/15/18 03:02 Microbiology 06/09/18 13:05 Blood Culture - Final Blood 06/09/18 12:55 Blood Culture - Final Blood Laboratory Results 06/12/18 05:20 06/15/18 05:00 06/14/18 06/15/18 06/16/18 05:59 05:59 05:59 Intake Total 1834 1265 Output Total 1950 1570 Balance -116 -305 PT 16.8 SEC (12.0-15.0) H 06/11/18 05:40 INR 1.34 (0.83-1.16) H 06/11/18 05:40 - C-Spine Clearance Cervical Spine Cleared: No
[2018-06-15] MEDS: ENOXAPARIN 40 MG/0.4 ML SYR SC SCH (09:27)
[2018-06-15] MEDS: METOPROLOL TARTRATE 25 MG TAB PO SCH ×2 (09:28→22:40)
[2018-06-15] MEDS: KETOROLAC 30 MG/1 ML SDV IVP PRN (09:35)
--- NOTE | 2018-06-15 16:03 | ASMTCMCOM ---
CM Note CM Note Notes: Met with patient's sister, Ashley #[phone], to discuss all discharge plan options. Patient is still self-pay. Amanuel met with sister and CM today to discuss forms needed for Medicaid application. Sister to gather pay stubs from patient's employer on June 21 or (when employee back in office) and will get this info to Amanuel ALANIZ. Spoke with Briseida Chase at [facility] - Director of Rehab, Briseida Roth, is reviewing the case and will follow-up with CM with a for sure acceptance or denial. I have requested that someone from [facility] call and speak to this sister if they do end up denying as sister has multiple questions re: their evaluation. CM and sister also discussed back-up options to [facility]. SNF, private pay, potentially LTC SNF or return to mother or sister's home with HHC. A list of facilities was given to sister - she will research further. A ULTC-100 has been started but not completed as will need to gather more info from [employer] on Medicaid status next week. LTC application may not be completed until sister can gather info on assets. Sister understands she may need to consider a private pay situation for rehab. CM will continue to follow. Plan: Inpt. Rehab vs SNF vs HHC Date Signed: 06/15/2018 04:02 PM Electronically Signed By:Nellie Edmond RN
--- NOTE | 2018-06-15 16:43 | HOSPPROG ---
Hospitalist Progress Note Assessment/Plan: 63 yo male who was previously healthy, was working on a car when it fell on top of him and pinned him. He called his mom and a friend and when they arrived and moved the car off him, he went into cardiac arrest. * s/p cardiac arrest due to crush injury -ECHO okay * Metabolic encephalopathy - suspect due to anoxia -s/p HACA -improving daily, slow progress * Afib - suspect due to stress, now NSR -cont BB * Acute respiratory failure - s/p extubation. 3LPM today. Less tachypneic today. Recent cxr with persistent effusions. Still >10 L net positive -cont diuresis * 1st rib fracture -rib fracture protocol * Aspiration PNA - Klebsiella -s/p 7 days IV invanz -speech following, dysphagia 1 diet * Rhabdo due to crush injury - CK normalized * Increased LFT -likely due to shock, improving * Hypernatremia - Na normalized after increased free h20 in tube feeds -currently 150 q4h flushes * ARF -resolved * Volume overload -cont IV lasix, slowly diuresing * HTN -increased metoprolol, prn enalaprilat, hydral * FEN - tube feeds, able to take some po, but only 0-25% goal intake * DVT PPLX - Lovenox * Full code * Dispo - cont inpt, planning for inpt rehab once insurance issues sorted Subjective: Pt is tired today. Denies pain. Mom notes very little oral intake. No fevers. Denies CP or SOB Objective: Vital Signs Temp Pulse Resp BP Pulse Ox 36.7 C 65 20 103/51 L 93 06/15/18 12:00 06/15/18 12:00 06/15/18 12:00 06/15/18 12:00 06/15/18 12:00 Microbiology 06/09/18 13:05 Blood Culture - Final Blood 06/09/18 12:55 Blood Culture - Final Blood Laboratory Results 06/12/18 05:20 06/15/18 05:00 06/14/18 06/15/18 06/16/18 05:59 05:59 05:59 Intake Total 1834 1265 2100 Output Total 1950 1570 Balance -116 -305 2100 PT 16.8 SEC (12.0-15.0) H 06/11/18 05:40 INR 1.34 (0.83-1.16) H 06/11/18 05:40 - Physical Exam Constitutional: no apparent distress Eyes: PERRL Ears, Nose, Mouth, Throat: moist mucous membranes Cardiovascular: regular rate and rhythym Respiratory: no respiratory distress Gastrointestinal: normoactive bowel sounds, soft, non-tender abdomen Skin: warm Musculoskeletal: generalized weakness Neurologic: AAOx3 Psychiatric: interacting appropriately ICD10 Worksheet Patient Problems: Problems Problem Status Onset Anemia Acute Cardiac arrest due to trauma Acute Diarrhea Acute Thrombocytopenia Acute Traumatic asphyxiation Acute Ventilatory failure Acute
[2018-06-15] MEDS ORDERED: POTASSIUM CL 20 MEQ/15 ML UDCUP TUBE ONE (18:15)
[2018-06-15] MEDS: ACETAMINOPHEN 650 MG/20.3 ML UDCUP TUBE PRN (22:39)
[2018-06-16] MEDS: FUROSEMIDE 20 MG/2 ML VIAL IVP SCH ×3 (05:57→21:08)
[2018-06-16] MEDS ORDERED: POTASSIUM CL 20 MEQ/15 ML UDCUP TUBE ONE ×2 (06:15→19:45)
[2018-06-16] MEDS ORDERED: POTASSIUM CL 10 MEQ TAB PO ONE (08:28)
--- NOTE | 2018-06-16 08:47 | HOSPPROG ---
Hospitalist Progress Note Assessment/Plan: #Cardiac arrest: s/p HACA #Metabolic encephalopathy: significant improvement. Due to anoxic #Atrial fibrillation: cont BB, reduce dose with soft BP today #1st right rib fracture: stable #Klebsiella aspiration PNA: s/p Invanz #Acute hypoxic resp failure: improving. Wean oxygen as tolerated #Hypernatremia: resolved with D5 #PAUL: resolved #Hypokalemia: replete. check Mg #HTN: BB #Rhabdo: from crush injury, resolved #Volume overload: diuresing well #Diet: pureed, SPL to evaluated today. Encourage smoothies #DVT ppx: Lovenox #Deconditioning: plan for inpatient rehab; insurance pending #Disp: inpatient admission for PT, telemetry. Family very involved, at bedside and questions answered Subjective: "frustated, because hard to get of bed" Objective: Vital Signs Temp Pulse Resp BP Pulse Ox 36.9 C 68 17 111/60 99 06/16/18 08:00 06/16/18 08:00 06/16/18 08:00 06/16/18 08:00 06/16/18 08:00 Microbiology 06/09/18 13:05 Blood Culture - Final Blood 06/09/18 12:55 Blood Culture - Final Blood Laboratory Results 06/12/18 05:20 06/16/18 04:40 06/15/18 06/16/18 06/17/18 05:59 05:59 05:59 Intake Total 1265 2679 Output Total 1570 1600 Balance -305 1079 PT 16.8 SEC (12.0-15.0) H 06/11/18 05:40 INR 1.34 (0.83-1.16) H 06/11/18 05:40 - Time Spent With Patient Time Spent with Patient: greater than 35 minutes Time Spent with Patient: Greater than 35 minutes spent on this patients care, greater than 50% of time spent counseling, educating, and coordinating care regarding the above mentioned plan. - Physical Exam Constitutional: other (thin) Eyes: PERRL Ears, Nose, Mouth, Throat: other (abrasion over forehead, healing) Cardiovascular: regular rate and rhythym Respiratory: no respiratory distress Gastrointestinal: normoactive bowel sounds Genitourinary: no bladder fullness Skin: warm Musculoskeletal: generalized weakness Neurologic: CN II-XII Intact Psychiatric: encephalopathic ICD10 Worksheet Patient Problems: Problems Problem Status Onset Anemia Acute Cardiac arrest due to trauma Acute Diarrhea Acute Thrombocytopenia Acute Traumatic asphyxiation Acute Ventilatory failure Acute
[2018-06-16] MEDS: ENOXAPARIN 40 MG/0.4 ML SYR SC SCH (10:14)
--- NOTE | 2018-06-16 12:27 | TRAUMAPN ---
Trauma Progress Note Assessment/Plan: 63yo M s/p crush injury c subsequent cardiac arrest, prior HACA/rewarming no overnight issues. Afebrile. sleeping, arousable, alert. heart reg lungs clear abd dist, soft, nontender ext with diffuse minimal edema rt arm PICC clean Neuro: following commands, verbalizing stronger Pulm: off Invanz - no new pneumonia or effusion concerns at this time CV: HTN/afib - po betablocker GI: taking thick liquids and tolerating tube feeds : persistent hypokalemia - supplement Heme: on LMWH. CK from crush injury - resolved Id: afebrile Dispo: rehab planning? 06/12/18 09:18 Objective: Vital Signs Temp Pulse Resp BP Pulse Ox 36.9 C 68 17 111/60 99 06/16/18 08:00 06/16/18 08:00 06/16/18 08:00 06/16/18 08:00 06/16/18 08:00 Microbiology 06/09/18 13:05 Blood Culture - Final Blood 06/09/18 12:55 Blood Culture - Final Blood Laboratory Results 06/12/18 05:20 06/16/18 04:40 06/15/18 06/16/18 06/17/18 05:59 05:59 05:59 Intake Total 1265 2679 Output Total 1570 1600 Balance -305 1079 PT 16.8 SEC (12.0-15.0) H 06/11/18 05:40 INR 1.34 (0.83-1.16) H 06/11/18 05:40 - C-Spine Clearance Cervical Spine Cleared: No
[2018-06-16] MEDS ORDERED: PANCREASE FOR DOBHOFF 50 ML BTL TUBE ONE (12:30)
[2018-06-16] MEDS: METOPROLOL TARTRATE 25 MG TAB PO SCH ×2 (13:38→21:08)
--- NOTE | 2018-06-16 14:43 | ASMTCMCOM ---
CM Note CM Note Notes: [facility] contacted CM to request info re progress on Medicaid LTC. They will be contacted january on Tuesday so that they can have a better understanding on the timeline. Pt's sister asked to speak with CM; CM left a message on her voice mail. D/C Plan: [facility] vs SNF vs Independent with HC. Date Signed: 06/16/2018 02:43 PM Electronically Signed By:Stephanie Riddle
[2018-06-17] MEDS: FUROSEMIDE 20 MG/2 ML VIAL IVP SCH ×2 (06:15→14:02)
[2018-06-17] MEDS: METOPROLOL TARTRATE 25 MG TAB PO SCH ×2 (08:23→21:33)
[2018-06-17] MEDS: ENOXAPARIN 40 MG/0.4 ML SYR SC SCH (08:23)
--- NOTE | 2018-06-17 15:18 | TRAUMAPN ---
Trauma Progress Note - Problem/Surgery Performed (1) Cardiac arrest due to trauma Assessment/Plan: mechanism of injury leading to anoxic brain injury/slowly recovering neuologic function (2) Fracture of one rib of right side Assessment/Plan: right first rib fracture/only bony injury detected on secondary/tertiary survey- not complicated non-operative management Qualifiers: Encounter type: initial encounter (3) Anemia Assessment/Plan: last Hct 28.4 with recovering thrombocytopenia will check repeat today Qualifiers: Bone marrow failure anemia type: pancytopenia, other Assessment/Plan: s/p traumatic asphyxia with persistent, but resolving, severe neurologic deficit s/p HACA protocol anemia/thrombocytopenia-resolving nutritional deficit Plan: continue nutritional support/ST/OT/PT CM for placement in neuro-rehab facility Anderson Pete MD, FACS Objective: Vital Signs Temp Pulse Resp BP Pulse Ox 36.4 C 79 18 143/81 H 90 L 06/17/18 12:00 06/17/18 12:00 06/17/18 12:00 06/17/18 12:00 06/17/18 12:00 Laboratory Results 06/12/18 05:20 06/17/18 04:55 06/16/18 06/17/18 06/18/18 05:59 05:59 05:59 Intake Total 2679 820 Output Total 1600 1381 200 Balance 1079 -561 -200 PT 16.8 SEC (12.0-15.0) H 06/11/18 05:40 INR 1.34 (0.83-1.16) H 06/11/18 05:40 - C-Spine Clearance Cervical Spine Cleared: Yes Physical Exam - Physical Exam General Appearance: alert, no apparent distress Neck: non-tender, supple Respiratory: lungs clear, decreased breath sounds Cardiac/Chest: regular rate, rhythm Abdomen: non-tender, soft Male Genitalia: deferred Rectal: deferred Back: Other (healing abrasion over mid upper thoracic spine) Skin: warm/dry, pallor Neuro/Psych: alert, normal mood/affect, oriented x 3, motor weakness, speech abnormalities Time Spent w/Patient (minutes): 15
--- NOTE | 2018-06-17 15:33 | HOSPPROG ---
Hospitalist Progress Note Assessment/Plan: #Cardiac arrest: s/p HACA #Metabolic encephalopathy: significant improvement. Due to anoxia #Atrial fibrillation: cont BB, reduce dose with soft pressures #1st right rib fracture: stable #Klebsiella aspiration PNA: s/p Invanz #Acute hypoxic resp failure: improving. Wean oxygen as tolerated #Hypernatremia: resolved with D5 #PAUL: resolved #Hypokalemia: replete. check Mg #HTN: BB #Rhabdo: from crush injury, resolved #Volume overload: transition to oral Lasix 06/17 #Diet: pureed, SPL to re-evaluate #DVT ppx: Lovenox #Deconditioning: plan for inpatient rehab; insurance pending #Disp: inpatient admission for PT, telemetry. Family very involved, at bedside and questions answered Subjective: "trying to get things in order" Objective: Vital Signs Temp Pulse Resp BP Pulse Ox 36.4 C 79 18 143/81 H 90 L 06/17/18 12:00 06/17/18 12:00 06/17/18 12:00 06/17/18 12:00 06/17/18 12:00 Laboratory Results 06/12/18 05:20 06/17/18 04:55 06/16/18 06/17/18 06/18/18 05:59 05:59 05:59 Intake Total 2679 820 Output Total 1600 1381 200 Balance 1079 -561 -200 PT 16.8 SEC (12.0-15.0) H 06/11/18 05:40 INR 1.34 (0.83-1.16) H 06/11/18 05:40 - Time Spent With Patient Time Spent with Patient: greater than 35 minutes Time Spent with Patient: Greater than 35 minutes spent on this patients care, greater than 50% of time spent counseling, educating, and coordinating care regarding the above mentioned plan. - Physical Exam Constitutional: other (thin) Eyes: other (abrasion left forehead) Ears, Nose, Mouth, Throat: moist mucous membranes Cardiovascular: regular rate and rhythym, No edema Respiratory: No inspiratory crackles Gastrointestinal: normoactive bowel sounds Skin: warm Musculoskeletal: generalized weakness Neurologic: CN II-XII Intact Psychiatric: encephalopathic ICD10 Worksheet Patient Problems: Problems Problem Status Onset Anemia Acute Cardiac arrest due to trauma Acute Diarrhea Acute Fracture of one rib of right side Acute Thrombocytopenia Acute Traumatic asphyxiation Acute Ventilatory failure Acute
[2018-06-17 18:04] LABS: PLATELET COUNT 507 10^3/uL (150-400)
[2018-06-17] MEDS ORDERED: POTASSIUM CL 20 MEQ/15 ML UDCUP TUBE ONE (22:15)
[2018-06-18] MEDS: METOPROLOL TARTRATE 25 MG TAB PO SCH ×2 (09:19→20:26)
[2018-06-18] MEDS: FUROSEMIDE 20 MG TAB PO SCH ×2 (09:19→15:22)
[2018-06-18] MEDS: ENOXAPARIN 40 MG/0.4 ML SYR SC SCH (09:19)
--- NOTE | 2018-06-18 10:30 | SOAPPROG ---
SOAP Progress Note Assessment/Plan: Assessment/Plan discussed with Dr. Morgan. She will be primary Objective: Vital Signs Temp Pulse Resp BP Pulse Ox 36.4 C 82 18 118/67 93 06/18/18 09:17 06/18/18 09:17 06/18/18 09:17 06/18/18 09:17 06/18/18 09:17 Laboratory Results 06/17/18 17:45 06/18/18 06:10 06/17/18 06/18/18 06/19/18 05:59 05:59 05:59 Intake Total 820 2497 Output Total 1381 875 Balance -561 1622 PT 16.8 SEC (12.0-15.0) H 06/11/18 05:40 INR 1.34 (0.83-1.16) H 06/11/18 05:40 ICD10 Worksheet Patient Problems: Problems Problem Status Onset Anemia Acute Cardiac arrest due to trauma Acute Diarrhea Acute Fracture of one rib of right side Acute Thrombocytopenia Acute Traumatic asphyxiation Acute Ventilatory failure Acute
--- NOTE | 2018-06-18 11:47 | HOSPPROG ---
Hospitalist Progress Note Assessment/Plan: #Cardiac arrest: s/p HACA #Metabolic encephalopathy: significant improvement. Due to anoxia #Atrial fibrillation: cont BB, reduce dose with soft pressures #1st right rib fracture: stable #Klebsiella aspiration PNA: s/p Invanz #Acute hypoxic resp failure: improving. Wean oxygen as tolerated #Hypernatremia: resolved with D5 #PAUL: resolved #Hypokalemia: replete. check Mg #HTN: BB #Rhabdo: from crush injury, resolved #Volume overload: transition to oral Lasix 06/17 #Diet: pureed, SPL to re-evaluate. Encourage protein supplements #DVT ppx: Lovenox #Deconditioning: plan for inpatient rehab; insurance pending #Disp: inpatient admission for PT, telemetry. Family very involved, at bedside and questions answered Subjective: drinking smoothies Objective: Vital Signs Temp Pulse Resp BP Pulse Ox 37.1 C 73 10 L 124/73 H 98 06/18/18 11:13 06/18/18 11:13 06/18/18 11:13 06/18/18 11:13 06/18/18 11:13 Laboratory Results 06/17/18 17:45 06/18/18 06:10 06/17/18 06/18/18 06/19/18 05:59 05:59 05:59 Intake Total 820 2497 Output Total 1381 875 Balance -561 1622 PT 16.8 SEC (12.0-15.0) H 06/11/18 05:40 INR 1.34 (0.83-1.16) H 06/11/18 05:40 - Time Spent With Patient Time Spent with Patient: greater than 35 minutes Time Spent with Patient: Greater than 35 minutes spent on this patients care, greater than 50% of time spent counseling, educating, and coordinating care regarding the above mentioned plan. - Physical Exam Constitutional: other (thin) Eyes: PERRL Ears, Nose, Mouth, Throat: moist mucous membranes Cardiovascular: regular rate and rhythym, edema (+1 leg edema, BL) Respiratory: no respiratory distress, No inspiratory crackles Gastrointestinal: normoactive bowel sounds Genitourinary: No page in urethra Skin: warm Musculoskeletal: other (right PICC, no swelling. Left flank hematoma) Neurologic: CN II-XII Intact Psychiatric: encephalopathic ICD10 Worksheet Patient Problems: Problems Problem Status Onset Anemia Acute Cardiac arrest due to trauma Acute Diarrhea Acute Fracture of one rib of right side Acute Thrombocytopenia Acute Traumatic asphyxiation Acute Ventilatory failure Acute
[2018-06-18] MEDS ORDERED: ACETAMINOPHEN 650 MG/20.3 ML UDCUP PO PRN (15:00)
[2018-06-18] MEDS ORDERED: POTASSIUM CL 10 MEQ TAB PO ONE (22:39)
[2018-06-19] MEDS ORDERED: POTASSIUM CL 10 MEQ TAB PO ONE (07:50)
[2018-06-19] MEDS: ENOXAPARIN 40 MG/0.4 ML SYR SC SCH (08:20)
[2018-06-19] MEDS: FUROSEMIDE 20 MG TAB PO SCH ×2 (08:20→16:57)
[2018-06-19] MEDS: METOPROLOL TARTRATE 25 MG TAB PO SCH ×2 (08:20→21:56)
--- NOTE | 2018-06-19 14:47 | ASMTCMCOM ---
CM Note CM Note Notes: Spoke with patient's sister Ashley who plans to bring in patient's paystubs on Jun 21. She has been in touch with Nellie CM manager java and Kristy from [facility] and will follow up with them both when she has the necessary information. Until then, patient will continue to work with therapies and Case Management will continue to follow. Date Signed: 06/19/2018 02:46 PM Electronically Signed By:Cee Garcia RN
--- NOTE | 2018-06-19 16:16 | HOSPPROG ---
Hospitalist Progress Note Assessment/Plan: #Cardiac arrest: s/p HACA #Metabolic encephalopathy: significant improvement. Due to anoxia #Atrial fibrillation: cont BB #1st right rib fracture: stable. Trauma signed off #Klebsiella aspiration PNA: s/p Invanz #Acute hypoxic resp failure: improving. Wean oxygen as tolerated #Hypernatremia: resolved with D5 #PAUL: resolved #Hypokalemia: replete. Mg at goal #HTN: BB #Rhabdo: from crush injury, resolved #Volume overload: transition to oral Lasix 06/17 #Diet: pureed, SPL to re-evaluate. Encourage protein supplements #DVT ppx: Lovenox #Deconditioning: plan for inpatient rehab; pending Medicaid #Disp: inpatient admission for PT, telemetry. Family very involved, at bedside and questions answered Subjective: substernal chest pain with cough Objective: Vital Signs Temp Pulse Resp BP Pulse Ox 36.4 C 41 L 18 118/66 93 06/19/18 11:31 06/19/18 11:31 06/19/18 11:31 06/19/18 11:31 06/19/18 11:31 Laboratory Results 06/17/18 17:45 06/19/18 03:20 06/18/18 06/19/18 06/20/18 05:59 05:59 05:59 Intake Total 2497 1084 Output Total 875 200 Balance 1622 1084 -200 PT 16.8 SEC (12.0-15.0) H 06/11/18 05:40 INR 1.34 (0.83-1.16) H 06/11/18 05:40 - Time Spent With Patient Time Spent with Patient: greater than 35 minutes Time Spent with Patient: Greater than 35 minutes spent on this patients care, greater than 50% of time spent counseling, educating, and coordinating care regarding the above mentioned plan. - Physical Exam Constitutional: other (thin) Eyes: PERRL Ears, Nose, Mouth, Throat: moist mucous membranes, other (feeding tube in place) Cardiovascular: regular rate and rhythym, edema (+ 1 ankle edema, BL) Respiratory: no respiratory distress, No expiratory wheeze, No inspiratory crackles Gastrointestinal: normoactive bowel sounds Genitourinary: no bladder fullness Skin: warm Musculoskeletal: full muscle strength Neurologic: CN II-XII Intact Psychiatric: encephalopathic (tangential) ICD10 Worksheet Patient Problems: Problems Problem Status Onset Anemia Acute Cardiac arrest due to trauma Acute Diarrhea Acute Fracture of one rib of right side Acute Thrombocytopenia Acute Traumatic asphyxiation Acute Ventilatory failure Acute
[2018-06-20] MEDS: METOPROLOL TARTRATE 25 MG TAB PO SCH ×2 (09:20→20:42)
[2018-06-20] MEDS: ENOXAPARIN 40 MG/0.4 ML SYR SC SCH (09:21)
[2018-06-20] MEDS: FUROSEMIDE 20 MG TAB PO SCH ×2 (09:21→17:14)
--- NOTE | 2018-06-20 13:22 | HOSPPROG ---
Hospitalist Progress Note Assessment/Plan: #Cardiac arrest: s/p HACA #Atrial fibrillation: cont BB #1st right rib fracture: stable. Trauma signed off #Klebsiella aspiration PNA: s/p Invanz #Acute hypoxic resp failure: improving. Wean oxygen as tolerated #Hypernatremia: resolved with D5 #PAUL: resolved #Hypokalemia: replete. Mg at goal #HTN: BB #Rhabdo: from crush injury, resolved #Metabolic encephalopathy: resolved. Due to anoxic injury with cardiac arrest #Volume overload: transition to oral Lasix 06/17 #Diet: dysphagia 2 diet.. Encourage protein supplements #DVT ppx: Lovenox #Deconditioning: goal would be inpatient rehab. Sister to bring in paystubs, so can apply to Medicaid #Disp: inpatient admission for PT, telemetry. Family very involved, at bedside and questions answered Subjective: drinking more smoothies, eating a bit more Objective: Vital Signs Temp Pulse Resp BP Pulse Ox 36.8 C 73 22 H 120/70 92 06/20/18 11:38 06/20/18 11:38 06/20/18 11:38 06/20/18 11:38 06/20/18 11:38 Laboratory Results 06/17/18 17:45 06/20/18 05:35 06/19/18 06/20/18 06/21/18 05:59 05:59 05:59 Intake Total 1084 1200 100 Output Total 1425 600 Balance 1084 -225 -500 PT 16.8 SEC (12.0-15.0) H 06/11/18 05:40 INR 1.34 (0.83-1.16) H 06/11/18 05:40 - Time Spent With Patient Time Spent with Patient: greater than 25 minutes Time Spent with Patient: Greater than 25 minutes spent on this patients care, greater than 50% of time spent counseling, educating, and coordinating care regarding the above mentioned plan. - Physical Exam Constitutional: no apparent distress Eyes: PERRL Ears, Nose, Mouth, Throat: other (NG feeding tube in place) Cardiovascular: regular rate and rhythym, edema (ankle edema still present) Respiratory: no respiratory distress Gastrointestinal: normoactive bowel sounds Genitourinary: no bladder fullness Skin: warm Neurologic: CN II-XII Intact ICD10 Worksheet Patient Problems: Problems Problem Status Onset Anemia Acute Cardiac arrest due to trauma Acute Diarrhea Acute Fracture of one rib of right side Acute Thrombocytopenia Acute Traumatic asphyxiation Acute Ventilatory failure Acute
[2018-06-21] MEDS ORDERED: NS 1,000 ML IV SCH (08:00)
[2018-06-21] MEDS: METOPROLOL TARTRATE 25 MG TAB PO SCH ×2 (09:20→20:30)
[2018-06-21] MEDS: FUROSEMIDE 20 MG TAB PO SCH ×2 (09:20→14:57)
[2018-06-21] MEDS: ENOXAPARIN 40 MG/0.4 ML SYR SC SCH (09:20)
--- NOTE | 2018-06-21 12:34 | HOSPPROG ---
Hospitalist Progress Note Assessment/Plan: #Cardiac arrest: s/p HACA #Severe protein caloric malnutrition: Alb 1.8. TFs at night until goal caloric intake #Atrial fibrillation: cont BB #1st right rib fracture: stable. Trauma signed off #Klebsiella aspiration PNA: s/p Invanz #Acute hypoxic resp failure: improving. Wean oxygen as tolerated #Hypernatremia: resolved with D5 #PAUL: resolved #Hypokalemia: replete. Mg at goal #HTN: BB #Rhabdo: from crush injury, resolved #Metabolic encephalopathy: resolved. Oriented, but poor short-term memory #Volume overload: transition to oral Lasix 06/17 #Diet: dysphagia 2 diet.. Encourage protein supplements #DVT ppx: Lovenox #Deconditioning: goal would be inpatient rehab. Sister to bring in paystubs, so can apply to Medicaid #Disp: inpatient admission for PT, telemetry. Family very involved, at bedside and questions answered Subjective: still not eating much per mother Objective: Vital Signs Temp Pulse Resp BP Pulse Ox 37.0 C 73 14 128/70 H 94 06/21/18 11:10 06/21/18 11:10 06/21/18 11:10 06/21/18 11:10 06/21/18 11:10 Laboratory Results 06/17/18 17:45 06/21/18 06:00 06/20/18 06/21/18 06/22/18 05:59 05:59 05:59 Intake Total 1200 650 Output Total 1425 1200 350 Balance -225 -550 -350 PT 16.8 SEC (12.0-15.0) H 06/11/18 05:40 INR 1.34 (0.83-1.16) H 06/11/18 05:40 - Time Spent With Patient Time Spent with Patient: greater than 35 minutes Time Spent with Patient: Greater than 35 minutes spent on this patients care, greater than 50% of time spent counseling, educating, and coordinating care regarding the above mentioned plan. - Physical Exam Constitutional: cachectic Eyes: PERRL Ears, Nose, Mouth, Throat: moist mucous membranes, other (NG tube) Cardiovascular: edema (ankle edema still present) Respiratory: no respiratory distress Gastrointestinal: normoactive bowel sounds Genitourinary: No page in urethra Skin: warm Musculoskeletal: full muscle strength Neurologic: AAOx3, CN II-XII Intact Psychiatric: interacting appropriately, poor memory ICD10 Worksheet Patient Problems: Problems Problem Status Onset Anemia Acute Cardiac arrest due to trauma Acute Diarrhea Acute Fracture of one rib of right side Acute Thrombocytopenia Acute Traumatic asphyxiation Acute Ventilatory failure Acute
--- NOTE | 2018-06-21 16:10 | ASMTCMCOM ---
CM Note CM Note Notes: CM met w/ pt for dispo planning. CM explained to pt how she spoke to his sister, Frannie this am. Frannie forward pts 2018 paystubs and CM forwarded it to Kristy. Kristy had some questions for Frannie. Kristy will file Medicaid application once she has all the information she needs. CM spoke to Eula w/ inpatient rehab. Eula's only concern is that pt will not have a safe d/c back home after 2 weeks of inpatient rehab therapies. CM to discuss options w/ Frannie. CM to follow. Date Signed: 06/21/2018 04:09 PM Electronically Signed By:GRISELDA Talbert
[2018-06-22] MEDS: FUROSEMIDE 20 MG TAB PO SCH ×2 (11:30→16:51)
[2018-06-22] MEDS: METOPROLOL TARTRATE 25 MG TAB PO SCH ×2 (11:30→20:59)
[2018-06-22] MEDS: ENOXAPARIN 40 MG/0.4 ML SYR SC SCH (11:31)
--- NOTE | 2018-06-22 16:05 | ASMTCMCOM ---
CM Note CM Note Notes: Kristy submitted Medicaid [place] today and pt was approved right away. Pts member ID is [id number]. CM met w/ pts sister Frannie and went over options. Frannie would like pt to go to inpatient rehab. CM started ult[facility]-100 as a back up plan. Frannie would like referrals made to [facility] and [facility] as a secondary plan. CM left messaged for Eula. CM to follow. Plan: TBD Date Signed: 06/22/2018 04:05 PM Electronically Signed By:GRISELDA Talbert
--- NOTE | 2018-06-22 17:25 | HOSPPROG ---
Hospitalist Progress Note Assessment/Plan: #Cardiac arrest: s/p HACA #Severe protein caloric malnutrition: Alb 1.8. Feeding tube clogged and removed. Caloric intake near goal, so won't replace #Atrial fibrillation: cont BB #1st right rib fracture: stable. Trauma signed off #Klebsiella aspiration PNA: s/p Invanz #Acute hypoxic resp failure: resolved #Hypernatremia: resolved with D5 #PAUL: resolved #Hypokalemia: replete. Mg at goal #HTN: BB #Rhabdo: from crush injury, resolved #Metabolic encephalopathy: resolved. Oriented, but poor short-term memory #Volume overload: euvolemic now. Stop Lasix #Diet: dysphagia 2 diet.. Encourage protein supplements #DVT ppx: Lovenox #Deconditioning: Medicaid approved. Await rehab placement. Medically stable #Disp: inpatient admission for PT, telemetry. Family very involved, at bedside and questions answered Subjective: spirits brighter today. Eating more Objective: Vital Signs Temp Pulse Resp BP Pulse Ox 36.4 C 74 18 126/79 H 93 06/22/18 16:00 06/22/18 16:00 06/22/18 16:00 06/22/18 16:00 06/22/18 16:00 Laboratory Results 06/17/18 17:45 06/21/18 06:00 06/21/18 06/22/18 06/23/18 05:59 05:59 05:59 Intake Total 650 1406 Output Total 1200 1750 480 Balance -550 -344 -480 PT 16.8 SEC (12.0-15.0) H 06/11/18 05:40 INR 1.34 (0.83-1.16) H 06/11/18 05:40 - Time Spent With Patient Time Spent with Patient: greater than 35 minutes Time Spent with Patient: Greater than 35 minutes spent on this patients care, greater than 50% of time spent counseling, educating, and coordinating care regarding the above mentioned plan. - Physical Exam Constitutional: other (thin) Eyes: PERRL Ears, Nose, Mouth, Throat: moist mucous membranes Cardiovascular: regular rate and rhythym, edema (ankle edema nearly resolved) Respiratory: no respiratory distress Gastrointestinal: normoactive bowel sounds Genitourinary: No page in urethra Skin: warm Musculoskeletal: full muscle strength Neurologic: CN II-XII Intact Psychiatric: interacting appropriately ICD10 Worksheet Patient Problems: Problems Problem Status Onset Anemia Acute Cardiac arrest due to trauma Acute Diarrhea Acute Fracture of one rib of right side Acute Thrombocytopenia Acute Traumatic asphyxiation Acute Ventilatory failure Acute
[2018-06-23] MEDS: ENOXAPARIN 40 MG/0.4 ML SYR SC SCH (10:26)
[2018-06-23] MEDS: METOPROLOL TARTRATE 25 MG TAB PO SCH (10:26)
[2018-06-23 10:56] VITALS: BP 121/74
--- NOTE | 2018-06-23 12:21 | ASMTDCNOTE ---
Case Management Discharge Discharge Order Complete? Answers: Yes Patient to Obtain Answers: Other Notes: [facility] Inpatient Rehab Medications Transportation Arranged Answers: Family/Friends EMTALA Complete Answers: No Case Management Transport Answers: No Form Complete Faxed Final Orders Answers: Yes Agency/Facility Transfer Answers: Yes Report Printed & Faxed to Receiving Agency Family Notified Answers: Yes Discharge Comments Notes: Pts case discussed in tx rounds. Pt is being d/c'd today to [facility] Inpatient [facility]. CM notfiied pts sister. CM met w/ pt and notified him and his mom. Linda RN will call to give report. CM coordinated d/c w/ Eula Cotton. Sister will transport pt. CM available for changes. Plan: [facility] Inpatient Rehab Date Signed: 06/23/2018 12:20 PM Electronically Signed By:GRISELDA Talbert
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
--- NOTE | 2018-06-23 13:08 | PDIAF ---
- Diagnosis Diagnosis: status post cardiac arrest Code Status: Full Code - Medication Management Discharge Medications: electronically signed and located in the Home Medication List. - Orders Diet Recommendation: no restrictions on diet Diet Texture: Dysphagia 2 - Mechanically Altered - Chopped, Ground, Thin Liquids , Meds Crushed in Puree Additional Instructions: Activity: as tolerated - Follow Up Care Current Providers and Referrals: Patient,NotPresent [Unknown] - As per Instructions
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
== END 2018-06-23 14:30 | DRG 196 ==
LOC: F2N 22:50 → F2W 06-14 14:00
PROVIDERS: ADMIT Internal Medicine; ATTEND Surgery
PROC: 5A1955Z Respiratory Ventilation, Greater than 96 Consecutive Hours (ICD-10-PCS; principal; 2018-06-02)
PROC: 04HK33Z Insertion of Infusion Device into Right Femoral Artery, Percutaneous Approach (ICD-10-PCS; 2018-06-02)
PROC: 0B968ZZ Drainage of Right Lower Lobe Bronchus, Via Natural or Artificial Opening Endoscopic (ICD-10-PCS; 2018-06-05)
PROC: 0B9D8ZX Drainage of Right Middle Lung Lobe, Via Natural or Artificial Opening Endoscopic, Diagnostic (ICD-10-PCS; 2018-06-05)
PROC: 0B9F8ZX Drainage of Right Lower Lung Lobe, Via Natural or Artificial Opening Endoscopic, Diagnostic (ICD-10-PCS; 2018-06-05)
PROC: 0B958ZZ Drainage of Right Middle Lobe Bronchus, Via Natural or Artificial Opening Endoscopic (ICD-10-PCS; 2018-06-05)
PROC: 02HV33Z Insertion of Infusion Device into Superior Vena Cava, Percutaneous Approach (ICD-10-PCS; 2018-06-07)
DX: I46.8 Cardiac arrest due to other underlying condition (principal); J96.01 Acute respiratory failure with hypoxia; J69.0 Pneumonitis due to inhalation of food and vomit; G93.41 Metabolic encephalopathy; T71.191A Asphyxiation due to mechanical threat to breathing due to other causes, accidental, initial encounter; E43 Unspecified severe protein-calorie malnutrition; R13.10 Dysphagia, unspecified; N17.9 Acute kidney failure, unspecified; S22.31XA Fracture of one rib, right side, initial encounter for closed fracture; B96.1 Klebsiella pneumoniae [K. pneumoniae] as the cause of diseases classified elsewhere; I48.91 Unspecified atrial fibrillation; E87.0 Hyperosmolality and hypernatremia; I10 Essential (primary) hypertension; E87.6 Hypokalemia; T79.6XXA Traumatic ischemia of muscle, initial encounter; V48.2XXA Person on outside of car injured in noncollision transport accident in nontraffic accident, initial encounter; Y93.H9 Activity, other involving exterior property and land maintenance, building and construction; R40.2432 Glasgow coma scale score 3-8, at arrival to emergency department
CPT/HCPCS: 80305; 82435-PO; 82565-PO; 82947-PO; 84132-PO; 84295-PO; 84484-PO; 84520-PO; 85014-PO; 92507-GN; 92523-GN; 92526-GN; 92610-GN; 92611-GN; 96374; 97110-GO; 97110-GP; 97112-GP; 97116-GP; 97163-GP; 97167-GO; 97530-GO; 97530-GP; 97535-GO; C1751; G0480; J0282; J0360; J0610; J1335; J1650; J1885; J1940; J2250; J2704; J2997; J3010; J3475; J3480; L0172; P9041; Q9967